=== PATIENT | male | born 1940 | race Caucasian/White ===

== ENCOUNTER → 2016-12-18 | Outpatient (CLI) | payer MEDICARE ==
--- NOTE | 2016-12-25 00:31 | MRI ---
EXAM DESCRIPTION: Cervical Spine CLINICAL HISTORY: 76 years Male, RADICULOPATHY COMPARISON: None. TECHNIQUE: Multiplanar, multisequence imaging of the cervical spine was performed without contrast. FINDINGS: There is mild straightening of the normal cervical lordosis. Disc desiccation at all levels with height loss at C6-7. The dens is unremarkable. Craniocervical and atlantoaxial junctions are unremarkable. C2-C3: No spinal canal or neuroforaminal narrowing. Mild right facet degeneration. C3-C4: Bilateral facet degeneration and uncovertebral joint hypertrophy. There is mild bilateral neural foraminal narrowing. The spinal canal is adequate. C4-C5: 2 mm broad-based posterior disc protrusion. The midline diameter of the spinal canal is widely patent measuring 1.2 cm. Moderate bilateral neural foraminal narrowing from facet and uncovertebral joint hypertrophy. C5-6: Severe bilateral neural foraminal narrowing from facet and uncovertebral joint hypertrophy. The midline diameter of the spinal canal is adequate at 12 mm. C6-C7: Broad-based posterior disc osteophyte complex and ligamentum flavum buckling. The midline diameter of the spinal canal is adequate at 1 cm. Severe bilateral neural foraminal narrowing from facet and uncovertebral joint hypertrophy. C7-T1: Facet degeneration and uncovertebral hypertrophy result in moderate bilateral neural foraminal narrowing. There is subtle grade 1 anterior listhesis of C7 on T1 with unroofing of the intervertebral disc. The AP diameter of the spinal canal is adequate. The facet hypertrophy on the left contacts the posterior margin of the cervical spine. No evidence of myelomalacia. IMPRESSION: Today's exam demonstrates multilevel degenerative change, but no spinal canal narrowing at any level. There is grade 1 anterior listhesis of C7 on T1 due to severe facet degeneration. Facet hypertrophy of the left facet result in contact of the posterior left margin of the spinal cord. No evidence of myelomalacia. Multilevel neuroforaminal narrowing as described above. This is most pronounced bilaterally at C6-C7 and C5-6 in which there is severe bilateral neuroforaminal narrowing. Electronically signed by: Iftikhar Gauthier MD 12/19/2016 10:53 AM ENVIRONMENTAL SERVICES SUPERVISOR
== END | disposition home or self-care (01) ==
LOC: MRI 06:42
PROVIDERS: ATTEND Family Medicine
DX: M54.12 Radiculopathy, cervical region (principal)

== ENCOUNTER 2016-12-31 12:58 | Emergency (ER) | payer MEDICARE ==
[2016-12-31 13:08] VITALS: TEMP 98.4
[2016-12-31] MEDS ORDERED: SODIUM CHLORIDE 0.9% 1000ML 500 ML IVS ONE (13:10)
[2016-12-31] MEDS ORDERED: PHYTONADIONE INJ 10 MG/ML AMP IM ONE (13:37)
--- NOTE | 2016-12-31 15:06 | CT ---
PROCEDURE: Abdomen/Pelvis w/Contrast HISTORY: gi bleed Indication: Same as above Comparison: None . Technique: CT of the abdomen and pelvis was done with intravenous contrast. Images were obtained from the lung base to the level of the pubic symphysis in axial plane, followed by orthogonal sagittal and coronal reconstruction. Oral contrast was not given for the study. The patient was injected with radiographic contrast intravenously, without any documented immediate adverse reactions. FINDINGS: Images through the lung bases do not show any focal infiltrates or pleural effusions. There is diffuse thickening of the wall of the descending colon, from the level of the splenic flexure to the level of the junction with the sigmoid colon suspicious for segmental colitis, which could be due to infectious/inflammatory or ischemic etiology. The liver, gallbladder, pancreas, spleen and the bilateral adrenal glands appear unremarkable. Note is made of multiple benign cortical cysts in the bilateral kidneys, the largest of these cysts seen in the upper pole of each kidney. The bilateral kidneys otherwise enhance with contrast in a normal fashion. The urinary bladder is unremarkable . Prostate is mildly enlarged The bilateral ureters and the bilateral periureteral soft tissues and fat planes are unremarkable. The small bowel appears unremarkable, without any evidence of small bowel obstruction or bowel wall thickening. There is no CT evidence of acute appendicitis, pericecal inflammatory change or ileocecal mesenteric adenitis. The ileocecal junction appears unremarkable. The splenic and portal veins are of normal caliber, without any filling defects. There is no pathological lymphadenopathy in the retroperitoneum or in the pelvic region. There is no evidence of free fluid or free air in the abdomen or the pelvic region. There is no clinically significant abdominal aortic aneurysm. Fat-containing bilateral inguinal hernia defects are seen. The visualized lumbar spine shows degenerative change, most pronounced at L5/S1 level . The paravertebral soft tissues are unremarkable. The remainder of the pelvic structures are unremarkable. IMPRESSION: There is diffuse thickening of the wall of the descending colon, from the level of the splenic flexure to the level of the junction with the sigmoid colon suspicious for segmental colitis, which could be due to infectious/inflammatory or ischemic etiology.. Location of Interpretation: [facility] Electronically signed by: Koby Hayes MD 12/31/2016 3:[address]
[2016-12-31] MEDS ORDERED: metroNIDAZOLE IV PREMIX 500MG 500 MG in PREMIX BAG 1 BAG IVPB ONE (15:15)
[2016-12-31] MEDS ORDERED: metroNIDAZOLE IV PREMIX 500MG 100 ML IVPB ONE (15:29)
--- NOTE | 2016-12-31 15:44 | ED.PDOC ---
History of Present Illness - General Chief Complaint: GI Problem Stated Complaint: severe abdominal pain Time Seen by Provider: 12/31/16 13:00 Source: patient, family Exam Limitations: no limitations - History of Present Illness Initial Comments: the patient is a 76-year-old male presented to emergency room secondary to lower GI bleeding. The patient has had approximately 5 bowel movements with blood the first starting in the early hours of the morning around 5 AM. The initial bowel movement was stool with blood mixed in. The last 2 bowel movements were just frankly what clots being passed. Estimated blood loss by description from the report approximately 150 cc. The patient is anticoagulated on Coumadin for atrial fibrillation. He does have some mild to moderate bowel cramping. He has had no hypotension or tachycardia since his arrival here. He said he did feel weak there for a little while while he was sitting on the toilet. He did not pass out. No palpitations. No shortness of breath. No chest pain. He has not any problems with hemorrhoids recently. He has not been on antibiotics recently. He has not had a lower endoscopy in the past and he has no family history of inflammatory bowel disease or early gastrointestinal cancers. No recent abdominal trauma. He had been having regular bowel movements up until this morning. No fevers or cramping prior to that. Severity: moderate Improving Factors: nothing Worsening Factors: nothing Associated Symptoms: diaphoresis, loss of appetite, nausea/vomiting, weakness Allergies/Adverse Reactions: Allergies Penicillin G Allergy (Intermediate, Verified 12/31/16 13:12) Rash Home Medications: Ambulatory Orders Amlodipine Besylate 10 mg PO HS 12/06/12 Digoxin 0.25 mg PO HS 12/06/12 Fish Oil [(None)] 2,400 mg PO HS 12/06/12 Niacinamide [Niacin] 5,000 mg PO HS 12/06/12 Warfarin Sodium [Coumadin] 10 mg PO SUTUTHSA 12/06/12 Warfarin Sodium [Coumadin] 5 mg PO MOWEFR 12/31/16 Review of Systems - Review of Systems Constitutional: States: malaise EENTM: States: no symptoms reported Respiratory: States: no symptoms reported Cardiology: States: no symptoms reported Gastrointestinal/Abdominal: States: see HPI Genitourinary: States: no symptoms reported Musculoskeletal: States: no symptoms reported Skin: States: no symptoms reported Neurological: States: no symptoms reported Endocrine: States: no symptoms reported Hematologic/Lymphatic: States: blood clots - past from the GI tract, easy bruising - no new and due to Coumadin All other Systems: No Change from Baseline Past Medical History (General) - Patient Medical History Hx Stroke: No Hx Cardiac Disorders: Yes - Atrial fib Hx Congestive Heart Failure: No Hx Diabetes: No Hx MRSA: No - Vaccination History Hx Influenza Vaccination: No Hx Pneumococcal Vaccination: No - Social History Hx Tobacco Use: No Family Medical History - Family History Father Living Status: Hx Cardiac Disease: Yes Physical Exam - Physical Exam General Appearance: Alert, No apparent distress Eye Exam: bilateral normal Ears, Nose, Throat: normal ENT inspection, normal pharynx Neck: full range of motion, supple, normal inspection Respiratory: chest non-tender, lungs clear, normal breath sounds, no respiratory distress, no accessory muscle use Cardiovascular/Chest: normal peripheral pulses, no edema, irregularly irregular - but regular rate Peripheral Pulses: radial,right: 2+, radial,left: 2+, dorsalis pedis,right: 2+, dorsalis pedis,left: 2+ Gastrointestinal/Abdominal: soft, other - no obvious rebound or peritoneal signs. He is diffusely uncomfortable to palpation around his abdomen. Bowel sounds are present. 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 CT scan indicates descending colon colitis of uncertain etiology. The patient is receiving 1 dose of IV Flagyl. Vital signs have remained stable. Repeat hemoglobin and hematocrit are pending at this time and will be forwarded. Initial hemoglobin and hematocrit were reassuring. The patient has received 1 dose of subcutaneous vitamin K. Transferring from gastroenterology evaluation or intervention or evaluation. the patient has not had further bowel movements since his arrival here. - Results/Orders Results/Orders: Laboratory Tests 12/31/16 12/31/16 13:15 14:05 WBC 18.3 H RBC 5.39 Hgb 16.3 Hct 48.4 MCV 89.8 MCH 30.2 MCHC 33.7 RDW 13.0 Plt Count 188 MPV 9.0 Absolute Neuts (auto) 16.20 H Absolute Lymphs (auto) 1.30 Absolute Monos (auto) 0.80 Absolute Eos (auto) 0.00 Absolute Basos (auto) 0.10 Neutrophils % 88.4 H Lymphocytes % 6.9 L Monocytes % 4.1 Eosinophils % 0.0 L Basophils % 0.6 PT 25.2 H* INR 2.250 PTT (SP) 38.1 H D-Dimer, Quantitative < 230 Sodium 142 Potassium 3.8 Chloride 102 Carbon Dioxide 28 Anion Gap 15.8 BUN 16 Creatinine 0.85 BUN/Creatinine Ratio 18.8 Random Glucose 155 H Serum Osmolality 287.4 Lactic Acid 1.5 Calcium 9.3 Total Bilirubin 1.5 H AST 37 ALT 30 Alkaline Phosphatase 74 Serum Total Protein 8.3 H Albumin 4.6 Globulin 3.7 H Albumin/Globulin Ratio 1.2 Urine Color Yellow Urine Appearance Clear Urine pH 7.5 Ur Specific [place] 1.020 Urine Protein 100 H Urine Glucose (UA) Negative Urine Ketones 40 H Urine Blood Negative Urine Nitrite Negative Urine Bilirubin Small H Urine Urobilinogen 0.2 Ur Leukocyte Esterase Negative Urine RBC 0 Urine WBC 0 Ur Epithelial Cells [address] scan of abdomen and pelvis shows a descending colon colitis infectious versus inflammatory versus ischemic Departure - Departure Clinical Impression: Lower gastrointestinal bleeding Anticoagulant adverse reaction Qualifiers: Encounter type: initial encounter Qualifier Code: (T45.515A) Adverse effect of anticoagulants, initial encounter Disposition: Transfer to Hospital Home Medications: Ambulatory Orders Amlodipine Besylate 10 mg PO HS 12/06/12 Digoxin 0.25 mg PO HS 12/06/12 Fish Oil [(None)] 2,400 mg PO HS 12/06/12 Niacinamide [Niacin] 5,000 mg PO HS 12/06/12 Warfarin Sodium [Coumadin] 10 mg PO SUTUTHSA 12/06/12 Warfarin Sodium [Coumadin] 5 mg PO MOWEFR 12/31/16 Transfer to Outside Facility - Transfer Information Accepting Provider:: nellie Accepting Facility: [facility] Reason for Transfer: required specialist not available
[2016-12-31 16:13] VITALS: BP 118/67
[2016-12-31 16:56] VITALS: O2SAT 97
== END 2016-12-31 16:55 | disposition short-term general hospital (02) ==
LOC: ER 12:58
DX: K92.2 Gastrointestinal hemorrhage, unspecified (principal); T45.515A Adverse effect of anticoagulants, initial encounter; I48.91 Unspecified atrial fibrillation; Z88.0 Allergy status to penicillin; Z79.899 Other long term (current) drug therapy; Z79.01 Long term (current) use of anticoagulants
CPT/HCPCS: 36415; 74177; 80053; 81001; 83605; 85014; 85018; 85025; 85379; 85610; 85730; 93005; J3430; J3490; J7030

== ENCOUNTER 2017-01-12 04:27 | Emergency (ER) | payer MEDICARE ==
[2017-01-12] MEDS ORDERED: SODIUM CHLORIDE 0.9% 1000ML 1,000 ML IVS PRN (04:37)
[2017-01-12] MEDS ORDERED: SODIUM CHLORIDE 0.9% (FLUSH) 10 ML SYG IV PRN ×2 (04:37→04:45)
[2017-01-12] MEDS ORDERED: ATROPINE SULFATE 0.5 MG/5 ML SYRINGE IV ONE ×2 (04:39→04:41)
[2017-01-12] MEDS ORDERED: FLUMAZENIL 0.1 MG/ML VIAL IV ONE (05:11)
--- NOTE | 2017-01-12 05:14 | CT ---
Clinical History : altered LOC, minimal response , MAIN Exam : CT Head without contrast 01/12/2017 4:37 AM CDT Comparisons : none. Technique : Volumetric CT acquisition was performed through the brain. Images in the axial, coronal, and sagittal planes were presented for interpretation. Radiation dose : [id number]-870.72 Findings: The soft tissue structures of the face, scalp, and orbits are normal. The globes remain intact. The visualized portions of the paranasal sinuses and mastoid air-cells are clear. The calvarium remains intact . There is no acute intracranial hemorrhage, midline shift, or mass effect. The ventricles are normal in size and the posterior fossa structures are normal in appearance. Limited evaluation of the vasculature demonstrates no gross abnormalities. There is no CT evidence of acute infarction. Impression: No acute intracranial process. Electronically signed by: Yogi Rosa MD 01/12/2017 5:13 AM CDT
--- NOTE | 2017-01-12 05:15 | RAD ---
Clinical History : bradycardia, altered mental status , MAIN Exam : Portable AP view of the chest 01/12/2017 4:45 AM CDT Comparisons : PA and lateral views of the chest December 06, 2016 Findings : There is mild diffuse peribronchial thickening throughout the lungs bilaterally. There is no focal consolidation or pleural effusion.. The heart is enlarged. The mediastinal contours are normal in appearance. The thoracic spine is age appropriate. The shoulders are unremarkable. Limited evaluation of the upper abdomen demonstrates no gross abnormalities. Impression: Cardiomegaly with mild peribronchial thickening and no focal consolidation, likely representing interstitial edema versus viral/atypical infectious process. Electronically signed by: Yogi Rosa MD 01/12/2017 5:14 AM CDT
[2017-01-12] MEDS ORDERED: NALOXONE HCL INJ 0.4 MG/ML VIAL IV ONE (05:24)
--- NOTE | 2017-01-12 05:26 | ED.PDOC ---
History of Present Illness - General Chief Complaint: Trauma Stated Complaint: fall in BR, found unresponsive, breathing Time Seen by Provider: 01/12/17 04:45 Source: RN notes reviewed, Vital Signs reviewed, family - , EMS Exam Limitations: clinical condition - History of Present Illness Initial Comments: Patient is a 76 y/o male who was brought in by EMS. PT, Patient's heard a commotion in the bathroom and went in to find her slumped over. She was unable to pick him up, so she called EMS. Patient was unresponsive, so he was given two doses of Narcan. An IV was placed and a liter of NS was started. Patient was bradycardic, hypertensive and diaphoretic. Last known normal was 2100 last night. does not know all of Patient's medications. He had a colon resection 1 1/ 2 weeks ago by laparoscopy. The only pain medication he has is Tylenol #3. He does not have any sleeping aids or anxiety medication. He is currently on Coumadin for Afib. Timing/Duration: 1-3 hours Severity: severe Improving Factors: nothing Worsening Factors: nothing Associated Symptoms: other - Patient not communicative. Allergies/Adverse Reactions: Allergies Penicillin G Allergy (Intermediate, Verified 01/12/17 04:36) Rash Home Medications: Ambulatory Orders Amlodipine Besylate 10 mg PO HS 12/06/12 Digoxin 0.25 mg PO HS 12/06/12 Fish Oil [(None)] 2,400 mg PO HS 12/06/12 Niacinamide [Niacin] 5,000 mg PO HS 12/06/12 Warfarin Sodium [Coumadin] 10 mg PO SUTUTHSA 12/06/12 Warfarin Sodium [Coumadin] 5 mg PO MOWEFR 12/31/16 Review of Systems - Review of Systems Unable to Obtain Due To: clinical condition - Patient is obtunded and will not answer questions. Past Medical History (General) - Patient Medical History Hx Stroke: No Hx Cardiac Disorders: Yes - Atrial fib Hx Congestive Heart Failure: No Hx Hypertension: Yes Hx Diabetes: No Hx MRSA: No Surgical History: colectomy, other - Vaccination History Hx Influenza Vaccination: No Hx Pneumococcal Vaccination: No - Social History Hx Tobacco Use: No Hx Alcohol Use: No Family Medical History - Family History Father Living Status: Hx Cardiac Disease: Yes Physical Exam - Physical Exam General Appearance: Other - Obtunded Eye Exam: bilateral normal - PERRL Respiratory: no respiratory distress, no accessory muscle use, rhonchi Cardiovascular/Chest: no edema, no gallop, no murmur, bradycardia Gastrointestinal/Abdominal: normal bowel sounds, soft Neurologic: other - GCS-11 Skin Exam: diaphoresis Progress - Progress Progress: 01/12/17 05:54 Patient did not respond to any interventions we attempted. I called [facility] transfer center at 0528. Call back was at 0540. I spoke with Dr. Bradley, neurology, who requested we do a CTA head and neck. - Results/Orders Results/Orders: 01/12/17 01/12/17 01/12/17 04:48 04:50 05:06 Temperature 95.9 F L Pulse Rate [ 59 L 69 left] Respiratory 12 16 Rate Blood Pressure 105/53 122/84 [left] O2 Sat by Pulse 98 98 100 Oximetry 01/12/17 04:37 Sodium Chloride 0.9% (Flush) [Saline Flush Syringe] 10 ml IV PRN PRN Sodium Chloride 0.9% 1000ML [Ns 1000 ml] 1,000 ml IVS .QD 01/12/17 04:38 IV Care:Saline Lock per Protoc QSHIFT Telemetry .ONCE 01/12/17 04:39 Pulse Oximetry Assessment DAILY 01/12/17 04:45 IV Care:Saline Lock per Protoc QSHIFT Telemetry .ONCE Sodium Chloride 0.9% (Flush) [Saline Flush Syringe] 10 ml IV PRN PRN EKG STAT Pulse Ox Stat 01/12/17 04:46 Pulse Oximetry Assessment DAILY 01/12/17 05:23 Shoulder,Right 1 View [RAD] Stat 01/12/17 05:36 URINE DRUG SCREEN, 7 ASSAY Stat URINALYSIS Stat 01/12/17 05:43 Catheter:[place]ila QSHIFT 01/12/17 05:47 CTA Head [CT] Stat CTA Neck [CT] Stat 01/12/17 09:00 Pulse Ox Daily 01/12/17 04:37 Sodium Chloride 0.9% (Flush) [Saline Flush Syringe] 10 ml IV PRN PRN Sodium Chloride 0.9% 1000ML [Ns 1000 ml] 1,000 ml IVS .QD 01/12/17 04:38 IV Care:Saline Lock per Protoc QSHIFT Telemetry .ONCE 01/12/17 04:39 Pulse Oximetry Assessment DAILY 01/12/17 04:45 IV Care:Saline Lock per Protoc QSHIFT Telemetry .ONCE Sodium Chloride 0.9% (Flush) [Saline Flush Syringe] 10 ml IV PRN PRN EKG STAT Pulse Ox Stat 01/12/17 04:46 Pulse Oximetry Assessment DAILY 01/12/17 05:43 Catheter:Avila QSHIFT 01/12/17 05:47 CTA Head [CT] Stat CTA Neck [CT] Stat 01/12/17 09:00 Pulse Ox Daily Laboratory Results WBC 12.6 K/mm3 (4.8-10.8) H 01/12/17 04:45 RBC 4.65 M/mm3 (4.70-6.10) L 01/12/17 04:45 Hgb 13.8 gm/dL (14.0-18.0) L 01/12/17 04:45 Hct 42.2 % (42.0-52.0) 01/12/17 04:45 MCV 90.7 fl (80.0-94.0) 01/12/17 04:45 MCH 29.6 pg (27.0-31.0) 01/12/17 04:45 MCHC 32.7 g/dL (33.0-37.0) L 01/12/17 04:45 RDW 12.9 % (11.5-14.5) 01/12/17 04:45 Plt Count 331 K/mm3 (130-400) 01/12/17 04:45 MPV 8.6 fl (7.40-10.4) 01/12/17 04:45 Absolute Neuts (auto) 7.60 K/uL (1.8-6.8) H 01/12/17 04:45 Absolute Lymphs (auto) 4.00 K/uL (1.0-3.4) H 01/12/17 04:45 Absolute Monos (auto) 0.70 K/uL (0.2-0.8) 01/12/17 04:45 Absolute Eos (auto) 0.30 K/uL (0.0-0.4) 01/12/17 04:45 Absolute Basos (auto) 0.10 K/uL (0.0-0.1) 01/12/17 04:45 Neutrophils % 60.1 % (42.0-78.0) 01/12/17 04:45 Lymphocytes % 31.8 % (20.0-50.0) 01/12/17 04:45 Monocytes % 5.2 % (2.0-9.0) 01/12/17 04:45 Eosinophils % 2.1 % (1.0-5.0) 01/12/17 04:45 Basophils % 0.8 % (0.0-2.0) 01/12/17 04:45 PT 14.9 SECONDS (9.4-12.5) H 01/12/17 04:45 INR 1.320 01/12/17 04:45 PTT (SP) 32.2 SECONDS (25.1-36.5) 01/12/17 04:45 D-Dimer, Quantitative < 200 ng/mL (0-230) 01/12/17 04:46 Sodium 139 mmol/L (135-145) 01/12/17 04:45 Potassium 3.9 mmol/L (3.6-5.0) 01/12/17 04:45 Chloride 104 mmol/L (101-111) 01/12/17 04:45 Carbon Dioxide 26 mmol/L (21-31) 01/12/17 04:45 Anion Gap 12.9 (12-18) 01/12/17 04:45 BUN 15 mg/dL (7-18) 01/12/17 04:45 Creatinine 0.79 mg/dL (0.6-1.3) 01/12/17 04:45 BUN/Creatinine Ratio 19.0 (10-20) 01/12/17 04:45 Random Glucose 121 mg/dL (70-105) H 01/12/17 04:45 Serum Osmolality 279.6 mOsm/L (275-295) 01/12/17 04:45 Calcium 9.0 mg/dL (8.4-10.2) 01/12/17 04:45 Magnesium 2.1 mg/dL (1.8-2.5) 01/12/17 04:45 Total Bilirubin 0.6 mg/dL (0.2-1.0) 01/12/17 04:45 Direct Bilirubin 0.1 mg/dL (0-0.2) 01/12/17 04:45 Indirect Bilirubin 0.5 mg/dL (0.2-0.8) 01/12/17 04:45 AST 60 IU/L (10-42) H 01/12/17 04:45 ALT 58 IU/L (10-60) 01/12/17 04:45 Alkaline Phosphatase 127 IU/L (42-121) H 01/12/17 04:45 Creatine Kinase 27 IU/L (38-174) L 01/12/17 04:45 CK-MB (CK-2) 1.2 ng/mL (0.0-4.4) 01/12/17 04:45 CK-MB (CK-2) % Not Reportable 01/12/17 04:45 Troponin I < 0.02 ng/mL (0.01-0.05) 01/12/17 04:45 B-Natriuretic Peptide 112.0 pg/ml (0-100) H 01/12/17 04:45 Serum Total Protein 6.7 gm/dL (6.4-8.2) 01/12/17 04:45 Albumin 3.4 g/dl (3.2-5.5) 01/12/17 04:45 Urine Color Yellow (Yellow) 01/12/17 05:56 Urine Appearance Clear (Clear) 01/12/17 05:56 Urine pH 8.0 (4.5-7.8) H 01/12/17 05:56 Ur Specific [place] 1.020 (1.005-1.030) 01/12/17 05:56 Urine Protein 100 mg/dL H 01/12/17 05:56 Urine Glucose (UA) Negative mg/dL (Negative) 01/12/17 05:56 Urine Ketones Negative mg/dL (NEGATIVE) 01/12/17 05:56 Urine Blood Negative (Negative) 01/12/17 05:56 Urine Nitrite Negative 01/12/17 05:56 Urine Bilirubin Negative (NEGATIVE) 01/12/17 05:56 Urine Urobilinogen 0.2 mg/dL (0.2-1.0) 01/12/17 05:56 Ur Leukocyte Esterase Negative (Negative) 01/12/17 05:56 Urine RBC 0-1 /hpf 01/12/17 05:56 Urine WBC 0-1 /hpf 01/12/17 05:56 Ur Epithelial Cells 0 /hpf 01/12/17 05:56 Urine Bacteria Rare 01/12/17 05:56 Digoxin 0.9 ng/mL (1.0-2.0) L 01/12/17 04:56 Urine Opiates Screen Negative ng/mL (2000) 01/12/17 05:36 Urine Barbiturates Negative ng/mL (200) 01/12/17 05:36 Ur Phencyclidine Scrn Negative ng/mL (25) 01/12/17 05:36 U Amphetamin/Meth Scrn Negative ng/mL (1000) 01/12/17 05:36 U Benzodiazepines Scrn Negative ng/mL (200) 01/12/17 05:36 U Cocaine Metab Screen Negative ng/mL (300) 01/12/17 05:36 U Cannabinoids Screen Negative ng/mL (50) 01/12/17 05:36 Ethyl Alcohol < 5.40 mg/dL (0-79) 01/12/17 05:00 - EKG/XRAY/CT EKG: Atrial - with slow ventricular response - Rate 56, no ST T wave changes, Changed from - 01/01/2016 - afib, normal rate Comments: NML axis - Afib with SVR XRAY: chest - Peribronchial thickening. CT: Head--no acute process CT Ordered: Yes CT Interpretation Call Back: No - Report sent - Additional EKG/XRAY/Consults XRAY #2: Right shoulder - No fracture or dislocation Departure - Departure Clinical Impression: Atrial fibrillation with slow ventricular response Altered mental status Qualifiers: Altered mental status type: coma Coma depth: [place] coma 9-12 Qualifier Code: (R40.242) Luci coma scale score 9-12 Disposition: Transfer to Hospital Condition: Serious Home Medications: Ambulatory Orders Amlodipine Besylate 10 mg PO HS 12/06/12 Digoxin 0.25 mg PO HS 12/06/12 Fish Oil [(None)] 2,400 mg PO HS 12/06/12 Niacinamide [Niacin] 5,000 mg PO HS 12/06/12 Warfarin Sodium [Coumadin] 10 mg PO SUTUTHSA 12/06/12 Warfarin Sodium [Coumadin] 5 mg PO MOWEFR 12/31/16 Critical Care Note - Critical Care Note Total Time (mins): 20 Comments: Patient was given Atropine 0.5 mg IV due to symptomatic bradycardia. Pulse and blood pressure improved. He continued to receive IV fluids. Patient was also given Romazicon 0.2 mg and Narcan 0.4 mg without change in mental status. Total time spent in critical care was 20 minutes which does not include billable procedures. Transfer to Outside Facility - Transfer Information Accepting Provider:: Dr. Mark Viramontes Accepting Facility: [place] Reason for Transfer: required specialist not available
--- NOTE | 2017-01-12 06:05 | RAD ---
EXAM DESCRIPTION: Shoulder,Right 1 View CLINICAL HISTORY: 76 years, Male, shoulder weakness COMPARISON: PA and lateral views of the chest December 06, 2012 FINDINGS: The patient is osteopenic. There is otherwise no acute fracture or dislocation. The glenohumeral articulation is intact. The acromioclavicular joint is normal in appearance. Limited evaluation of the scapula and clavicle demonstrate no gross abnormalities. The chest is grossly normal in appearance. IMPRESSION: No acute fracture or dislocation of the right shoulder. Electronically signed by: Yogi Rosa MD 01/12/2017 6:04 AM CDT
--- NOTE | 2017-01-12 07:01 | CT ---
EXAM DESCRIPTION: CTA Head (accession [id number]), CTA Neck (accession [id number]), 01/12/2017 6:52 AM CDT CLINICAL HISTORY: 76 years, Male, Altered mental status COMPARISON: MRI cervical spine with and without contrast July 24, 2008 TECHNIQUE: Following the time administration of intravenous contrast, volumetric CT acquisition was performed from the aortic arch through the vertex of the brain. Images in the axial plane were presented for interpretation. No maximum intensity projection images or volume rendered images were provided for interpretation. RADIATION DOSE/CONTRAST : [id number] FINDINGS: Arch: The visualized portions of the aortic arch are normal. There is no stenosis of the proximal portion of the left subclavian artery proximal to the origin of the left vertebral artery. Right Neck: The right common carotid artery is normal in course and caliber from its origin off of the brachiocephalic trunk through the bifurcation.] There is calcified atherosclerotic plaque at the right carotid bulb with a 30% narrowing on axial image 65. The right internal and external carotid arteries are normal in course and caliber throughout the neck. There is no significant atherosclerotic or significant narrowing/dissection. Right Brain The right internal carotid artery is normal in course and caliber from its cervical through the supraclinoid segments. The right middle cerebral artery is normal in course, caliber, and branching pattern. The right anterior cerebral artery is normal in course, caliber and branching pattern. Left Neck: The left common carotid artery is normal in course and caliber from its origin off of the aorta to its bifurcation. There is complete occlusion of the left internal carotid artery from the level of the carotid bulb on axial image 64 through the level of the supraclinoid ICA on axial image 121. There is collateral filling of the anterior and middle cerebral arteries on the left as well as backfilling of the distal portion of the supraclinoid ICA. Left Brain: The left internal carotid artery is normal in course and caliber from its cervical through the supraclinoid segments. The left middle cerebral artery is normal in course, caliber, and branching pattern. The left anterior cerebral artery is normal in course, caliber and branching pattern. The anterior communicating artery is nonvisualized. There is no evidence of aneurysm or dissection in the anterior circulation or at the MCA bifurcation. Posterior Circulation: The left vertebral artery is asymmetrically smaller than the right vertebral arteries are otherwise normal in course and caliber. The basilar artery terminates in the left posterior cerebral artery. 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 The basilar artery has normal branching pattern. There is no evidence of aneurysm or dissection in the posterior circulation. The posterior cerebral arteries are symmetric and normal in appearance bilaterally. IMPRESSION: Neck CTA 1. 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 2. Calcified atherosclerotic plaque at the right carotid bulb without hemodynamically significant narrowing or evidence of dissection. Brain CTA 1. Collateral filling of the left middle and anterior cerebral arteries. 2. No other areas of aneurysm, dissection, or large vessel occlusion. Note: Results discussed with Dr. Alaniz of the Emergency Department at 06:58 on January 12, 2017. Electronically signed by: Yogi Rosa MD 01/12/2017 7:00 AM CDT
[2017-01-12 07:04] VITALS: BP 116/74; TEMP 97.2; O2SAT 98
== END 2017-01-12 07:03 | disposition short-term general hospital (02) ==
LOC: ER 04:27
DX: I48.91 Unspecified atrial fibrillation (principal); Z79.01 Long term (current) use of anticoagulants; Z79.899 Other long term (current) drug therapy; Z88.0 Allergy status to penicillin; I10 Essential (primary) hypertension; R40.2422 Glasgow coma scale score 9-12, at arrival to emergency department
CPT/HCPCS: 70450; 70496; 70498; 71010; 73020; 80048; 80076; 80162; 80307; 80320; 81001; 82550; 82553; 83880; 84484; 85025; 85379; 85610; 85730; 93005; 94760; J2310; J7030

== ENCOUNTER 2017-03-12 16:09 | Emergency (ER) | payer MEDICARE ==
[2017-03-12] MEDS ORDERED: SODIUM CHLORIDE 0.9% (FLUSH) 10 ML SYG IV PRN (16:39)
--- NOTE | 2017-03-12 16:59 | ED.PDOC ---
History of Present Illness - General Chief Complaint: Cardiovascular Problem Stated Complaint: SYNCOPE/HYPOTENSION Time Seen by Provider: 03/12/17 16:39 Source: family Exam Limitations: clinical condition, physical impairment - History of Present Illness Initial Comments: PT IS A RESIDENT OF [facility]. FAMILY MEMBERS STATE THAT PT HAD A SYNCOPAL EPISODE WHILE SITTING IN A CHAIR TODAY AND WAS FOUND TO BE HYPOTENSIVE BY LONG TERM STAFF. PT SUFFERED A MASSIVE STROKE IN DECEMBER WHICH AFFECTED HIS ABILITY TO MAINTAIN A NORMAL BLOOD PRESSURE. FAMILY STATES THAT PATIENT HAS EPISODES SIMILAR TO THIS EVERY FEW DAYS. PT IS ALSO APHASIC WITH RIGHT SIDED HEMIPARESIS SECONDARY TO THE STROKE. FAMILY DENIES ANY RECENT ILLNESS PRIOR TO TODAYS EPISODE. Severity: moderate Associated Symptoms: syncope Allergies/Adverse Reactions: Allergies Penicillin G Allergy (Intermediate, Verified 01/12/17 04:36) Rash Home Medications: Ambulatory Orders Amlodipine Besylate 10 mg PO HS 12/06/12 Digoxin 0.25 mg PO HS 12/06/12 Fish Oil [(None)] 2,400 mg PO HS 12/06/12 Niacinamide [Niacin] 5,000 mg PO HS 12/06/12 Warfarin Sodium [Coumadin] 10 mg PO SUTUTHSA 12/06/12 Warfarin Sodium [Coumadin] 5 mg PO MOWEFR 12/31/16 Review of Systems - Review of Systems Constitutional: Denies: chills, fever EENTM: Denies: tearing, nose congestion Respiratory: Denies: cough, short of breath Cardiology: States: see HPI, syncope. Denies: edema Gastrointestinal/Abdominal: Denies: diarrhea, nausea, vomiting Genitourinary: Denies: discharge, hematuria Musculoskeletal: Denies: gout, muscle stiffness Skin: Denies: change in color, lesions Neurological: States: pre-existing deficit. Denies: seizure, tremors Endocrine: Denies: excessive sweating, unexplained weight gain Hematologic/Lymphatic: Denies: easy bleeding, swollen glands Past Medical History (General) - Patient Medical History Hx Seizures: No Hx Stroke: Yes - December - right sided wkns Hx Cardiac Disorders: Yes - Atrial fib Hx Congestive Heart Failure: No Hx Pacemaker: No Hx Hypertension: Yes Hx Diabetes: No Hx MRSA: No Surgical History: colectomy - DUE TO ISCHEMIC BOWEL - Vaccination History Hx Influenza Vaccination: No Hx Pneumococcal Vaccination: No - Social History Hx Tobacco Use: No Hx Alcohol Use: No - Activities of Daily Living Penitentiary[facility]Assisted [facility] (if applicable):: [facility] Family Medical History - Family History Father Living Status: Hx Cardiac Disease: Yes Physical Exam - Physical Exam General Appearance: Alert, Comfortable, No apparent distress, Well Developed, Well Groomed, Well Hydrated, Well Nourished Eye Exam: bilateral normal Ears, Nose, Throat: hearing grossly normal, normal ENT inspection Neck: normal inspection Respiratory: lungs clear, normal breath sounds, no respiratory distress Cardiovascular/Chest: no edema, no murmur, irregularly irregular Gastrointestinal/Abdominal: non tender, soft, other - G TUBE IN PLACE IN THE EPIGASTRIC REGION Extremity: non-tender, normal inspection, no pedal edema Neurologic: alert - APHASIC, PT NODS AND SHAKES HEAD IN RESPONSE TO QUESTIONS, motor weakness - RIGHT SIDED HEMIPARESIS, sensory deficit Skin Exam: normal color, warm/dry Progress - Progress Progress: 03/12/17 18:28 PT CONTINUES TO REST COMFORTABLY, BLOOD PRESSURE HAS REMAINED STABLE WITH A SYSTOLIC IN THE 120S. LABS AND DIAGNOSTIC STUDIES DISCUSSED WITH FAMILY. WILL PLAN TO D/C BACK TO [facility]. - Results/Orders Results/Orders: 03/12/17 16:39 IV Care:Saline Lock per Protoc QSHIFT Telemetry .ONCE Sodium Chloride 0.9% (Flush) [Saline Flush Syringe] 10 ml IV PRN PRN EKG Stat Pulse Ox Stat 03/12/17 16:40 Pulse Oximetry Assessment DAILY 03/12/17 16:41 UA [URINALYSIS] Stat 03/12/17 17:37 Sodium Chloride 0.9% 1000ML [Ns 1000 ml] 1,000 ml IVS ONCE Laboratory Results - last 24 hr 03/12/17 16:55 WBC 9.0 RBC 5.33 Hgb 16.2 Hct 47.7 MCV 89.5 MCH 30.3 MCHC 33.9 RDW 14.1 Plt Count 193 MPV 9.7 Absolute Neuts (auto) 6.80 Absolute Lymphs (auto) 1.60 Absolute Monos (auto) 0.40 Absolute Eos (auto) 0.20 Absolute Basos (auto) 0.00 Neutrophils % 75.5 Lymphocytes % 17.4 L Monocytes % 4.6 Eosinophils % 2.0 Basophils % 0.5 PT 17.4 H INR 1.550 PTT (SP) 36.6 H Sodium 138 Potassium 4.4 Chloride 98 L Carbon Dioxide 31 Anion Gap 13.4 BUN 21 H Creatinine 0.72 BUN/Creatinine Ratio 29.2 H Random Glucose 111 H Serum Osmolality 279.3 Calcium 9.4 Magnesium 2.2 Creatine Kinase 29 L CK-MB (CK-2) 1.4 CK-MB (CK-2) % Not Reportable Troponin I 0.05 B-Natriuretic Peptide 39.6 - EKG/XRAY/CT EKG: Atrial, Fibrillation - @79BPM, NL INTERVALS, NL AXIS, GOOD R WAVE PROGRESSION, no ST T wave changes, Unchanged from - 01/12/17 Xray Comments: CXR: NO ACUTE FINDINGS PER RAD Departure - Departure Clinical Impression: Hypotension, chronic, History of CVA (cerebrovascular accident), History of atrial fibrillation Syncope Qualifiers: Syncope type: unspecified Qualified Code(s): R55 - Syncope and collapse Time of Disposition: 18:31 Disposition: Discharge to SNF Condition: Fair Departure Forms: ED Discharge - Pt. Copy, Patient Portal Self Enrollment Referrals: Papo Peterson MD [Primary Care Provider] - 1-2 Weeks Home Medications: Ambulatory Orders Amlodipine Besylate 10 mg PO HS 12/06/12 Digoxin 0.25 mg PO HS 12/06/12 Fish Oil [(None)] 2,400 mg PO HS 12/06/12 Niacinamide [Niacin] 5,000 mg PO HS 12/06/12 Warfarin Sodium [Coumadin] 10 mg PO SUTUTHSA 12/06/12 Warfarin Sodium [Coumadin] 5 mg PO MOWEFR 12/31/16
--- NOTE | 2017-03-12 17:36 | RAD ---
EXAM DESCRIPTION: Chest,1 View CLINICAL HISTORY: 76 years Male syncope/hypotension COMPARISON: 01/12/2017. FINDINGS: Poor inspiratory effort. Stable cardiac silhouette. Atherosclerotic calcifications and tortuosity in the thoracic aorta. Mild scarring or atelectasis in the mid and lower right lung and at the left lung base. No consolidating infiltrates or pleural effusions. No pneumothorax. IMPRESSION: Poor inspiratory effort with mild atelectatic changes. Electronically signed by: Dixon Benoit MD 03/12/2017 5:36 PM CDT
[2017-03-12] MEDS ORDERED: SODIUM CHLORIDE 0.9% 1000ML 1,000 ML IVS ONE (17:37)
[2017-03-12 19:42] VITALS: BP 135/85; TEMP 98; O2SAT 96
== END 2017-03-12 19:41 ==
LOC: ER 16:09
DX: I95.9 Hypotension, unspecified (principal); R55 Syncope and collapse; I69.920 Aphasia following unspecified cerebrovascular disease; I69.951 Hemiplegia and hemiparesis following unspecified cerebrovascular disease affecting right dominant side; I48.91 Unspecified atrial fibrillation; I10 Essential (primary) hypertension; Z88.0 Allergy status to penicillin; Z79.899 Other long term (current) drug therapy; Z79.01 Long term (current) use of anticoagulants
CPT/HCPCS: 36415; 71010; 80048; 82550; 82553; 83880; 84484; 85025; 85610; 85730; 93005; J7030

== ENCOUNTER 2017-03-30 13:00 | Inpatient (IN) | payer MEDICARE ==
--- NOTE | 2017-03-30 13:55 | ED.PDOC ---
History of Present Illness - General Chief Complaint: Syncope/Near Syncope Stated Complaint: syncopal episode Time Seen by Provider: 03/30/17 13:16 Source: RN notes reviewed, Vital Signs reviewed, family, correction records - History of Present Illness Initial Comments: Patient had an episode of hypotension and bradycardia with syncope prior to arrival by EMS. Granddaughter reports this has happened frequently in the past 2 months since he had a significant L sided stroke. At the time of his stroke these episodes were thought to be medication related thou there was discussion of a pacemaker at that time. These episodes seem to occur when he is in an upright position. Patient is noncommunicative but per granddaughter is not aware when these episodes are happening. Timing/Prior Episodes: single episode today, recent history Precipitating Factors: other - Sitting or standing Context: sitting Loss of Consciousness: brief (seconds) Current Symptoms: back to normal Allergies/Adverse Reactions: Allergies Penicillin G Allergy (Intermediate, Verified 01/12/17 04:36) Rash Home Medications: Ambulatory Orders Amlodipine Besylate 10 mg PO HS 12/06/12 Digoxin 0.25 mg PO HS 12/06/12 Fish Oil [(None)] 2,400 mg PO HS 12/06/12 Niacinamide [Niacin] 5,000 mg PO HS 12/06/12 Warfarin Sodium [Coumadin] 10 mg PO SUTUTHSA 12/06/12 Warfarin Sodium [Coumadin] 5 mg PO MOWEFR 12/31/16 Review of Systems - Review of Systems Unable to Obtain Due To: condition Past Medical History (General) - Patient Medical History Hx Seizures: No Hx Stroke: Yes - December - right sided wkns Hx Cardiac Disorders: Yes - Atrial fib Hx Congestive Heart Failure: No Hx Pacemaker: No Hx Hypertension: Yes Hx Diabetes: No Hx MRSA: No - Vaccination History Hx Influenza Vaccination: No Hx Pneumococcal Vaccination: No - Social History Hx Tobacco Use: No Hx Alcohol Use: No Physical Exam - Physical Exam General Appearance: Alert, Comfortable, No apparent distress, Well Developed, Well Groomed, Well Hydrated, Well Nourished Cardiovascular/Respiratory: regular rate, rhythm, no M/R/G, no JVD, normal breath sounds, no respiratory distress Gastrointestinal/Abdominal: normal bowel sounds, non tender, soft, no organomegaly, no pulsatile mass 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 Discussed with Dr. Rocha who will come see patient shortly. 03/30/17 14:53 Patient discussed again with Dr. Rocha. He would like for him to be admitted for 48-72 hours of continuous cardiac monitoring to catch these episodes to decide if he needs a pacemaker. Discussed with Hospitalist. Awaiting call back to see if admission is accepted. 03/30/17 15:[address] Ward, will admit for Syncope and cardiac monitoring. - EKG/XRAY/CT EKG: Atrial, Fibrillation, no ST T wave changes Comments: Rate 75 Departure - Departure Clinical Impression: Syncope and collapse, Blood pressure abnormally low, History of CVA ( cerebrovascular accident) Time of Disposition: 15:08 Disposition: Admit Patient Condition: Fair Departure Forms: ED Discharge - Pt. Copy, Patient Portal Self Enrollment Referrals: Papo Peterson MD [Primary Care Provider] - 1-2 Weeks Home Medications: Ambulatory Orders Amlodipine Besylate 10 mg PO HS 12/06/12 Digoxin 0.25 mg PO HS 12/06/12 Fish Oil [(None)] 2,400 mg PO HS 12/06/12 Niacinamide [Niacin] 5,000 mg PO HS 12/06/12 Warfarin Sodium [Coumadin] 10 mg PO SUTUTHSA 12/06/12 Warfarin Sodium [Coumadin] 5 mg PO MOWEFR 12/31/16 Decision To Admit - Decistion To Admit Decision to Admit Reason: Admit from ER Decision to Admit Date: 03/30/17 Decision to Admit Time: 15:07
--- NOTE | 2017-03-30 15:55 | HP ---
SUPERVISING PHYSICIAN: JOSE MIGUEL WARD MD CHIEF COMPLAINT: Syncopal episode. HISTORY OF PRESENT ILLNESS: This is a 76 year-old male patient who until December of this year had been in fairly good health. In the past he has had a history of atrial fibrillation, hypertension and hyperlipidemia and was on Coumadin. In December of this year he had a rectal bleed and was transferred to [place]. They took him off of his Warfarin for several days to have a colon resection and after surgery his Coumadin was restarted. His INR remained about 1.5 and he was home from January 05 to January 12. He fell in the bathroom at home, he was Care Flighted to [facility] in [place]. He had a stroke, he had several complications of the stroke while he was in the hospital at [facility] and ended up having some cardiac problems with low heart rate. At that time they considered placing a pacemaker but several of the physicians there felt that some of his symptoms were related to residual medications and effects of his stroke. He was then transferred to [facility] on . Since that time, he has had some syncopal episodes where the family says that he "zones out." These symptoms are usually when the patient goes to a sitting position or when he is being worked with with physical therapy. During these times, he has either syncopal episodes or he does not interact with visitors. He stares for long periods of time. These incidences have been increasing in frequency. He was scheduled to see Dr. Rocha today for a possible pacemaker insertion and before he could go to his appointment with he had a syncopal episode at [facility]. He was brought to the Emergency Room. Per the granddaughter, in the past all of his episodes have happened only when he goes to a sitting position but in the last 2 to 3 days they have occurred while he was lying in bed. Initially, the patient was going to be admitted for observation to observe his cardiac rhythm, his blood pressure as well as other symptoms but while in the Emergency Room he had a syncopal episode where his systolic blood pressure went to the 40s and within a few minutes his blood pressure went up to the 70s and within a few minutes after the initial onset, his systolic blood pressure was in the 100s. His heart rate ranged from 74 [id number] to 104 [id number]. During this time, the patient was unable to focus on anyone. He is at baseline aphasic and he does have residual right-sided hemiparesis. Lab work was done in the Emergency Room and his CBC was within normal limits. His chemistry showed a chloride of 100, BUN 22, glucose 112, AST was elevated at 389 with an ALT at 659 and alkaline phosphatase at 216. I was called for admission to the hospital. PAST MEDICAL HISTORY: 1. Atrial fibrillation. 2. Hypertension. 3. Hyperlipidemia. PAST SURGICAL HISTORY: 1. Hernia repair. 2. Colon resection. 3. Ankle surgery. OUTPATIENT MEDICATIONS: Per the EMR and awaiting verification. ALLERGIES: PENICILLIN SOCIAL HISTORY: He lives at [facility]. He quit smoking more than 25 years ago. He was a social drinker. There was no illicit drug use. REVIEW OF SYSTEMS: Unable to obtain due to patient's condition. PHYSICAL EXAMINATION: VITAL SIGNS: Heart rate 95, blood pressure 121/77, respiratory rate 12, 02 saturation 100% on room air. GENERAL: This is a 76 year-old male patient who is lying in his hospital bed. He is in no acute distress. HEENT: Atraumatic and normocephalic. Oropharynx is clear. CHEST: Clear to auscultation bilaterally. Chest has equal rise and fall of the chest with inspiration and expiration. CARDIOVASCULAR: Regular to tachycardiac rate, irregular rhythm. ABDOMEN: Soft, nontender, nondisplaced. Bowel sounds are positive. He has a G -tube in place. EXTREMITIES: He has right-sided hemiparesis. He moves his left side spontaneously. Bilateral pedal pulses are palpable at +2. SKIN: Warm and dry. There are no lesions or rashes. NEUROLOGIC: He is alert, he is aphasic. Labs and films are as per the history of present illness. ASSESSMENT: 1. Hypotension. 2. Syncopal episodes. 3. Elevated LSTs. 4. Recent CVA with residual aphasia and right-sided hemiparesis. 5. Atrial fibrillation on Coumadin therapy. 6. Recent rectal bleed with a colon resection. PLAN: We will admit the patient to the hospital. We will monitor his cardiac rhythm closely. I have consulted physical therapy. When physical therapy is being utilized, there will need to be someone that needs to be watching the compliance monitor as we need to record his heart rate. Dr. Rocha was called on this patient and he would like us to monitor his heart rate to warrant pacemaker placement. I have also ordered tilt blood pressures 3 times daily after meals. When those are obtained, the nurses have been instructed that two people needs to be assisting at the bedside as well as someone watching the monitor since most of his episodes occur when his position changes. A CT of the head has not been done recently and he will need one done but I would like to establish what his blood pressure and heart rate is during his position changes before we scan his head, but he will need a CT of his head as soon as possible. I have restarted his home medications. He also has tube feedings and I am not sure what those are so we will need to contact [facility] to obtain the type of tube feeding used in the actual schedule. I will repeat his labs in the morning as well as his PT/INR as he is on a rather large dose of Coumadin, will check that tomorrow. We will closely monitor all his vital signs and followup as needed. A Avila catheter will be placed as well as adding a urinalysis and a culture to make sure there is no infectious process at this time as patient has not been able to void since he was in the Emergency Room. Dr. Ward is the collaborating physician available for consultation. #[id number] #[id number]
[2017-03-30] MEDS ORDERED: SODIUM CHLORIDE 0.9% 1000ML 1,000 ML IVS ONE (15:56)
[2017-03-30] MEDS ORDERED: SODIUM CHLORIDE 0.9% (FLUSH) 10 ML SYG IV PRN (20:21)
[2017-03-30] MEDS ORDERED: IV SET AND CAP CHANGE INJ INJ SCH (20:30)
[2017-03-31] MEDS: DEX 5% W/NACL 0.9% 1000ML 1,000 ML IVS PRN ×3 (06:44→21:58)
[2017-03-31] MEDS ORDERED: WARFARIN SODIUM 5 MG TAB ONE (07:45)
[2017-03-31] MEDS: NON-FORMULARY MEDICATION 1 EA MIS (Linaclotide [Linzess] 145 MCG) GT SCH (09:15)
--- NOTE | 2017-03-31 10:46 | CT ---
EXAM DESCRIPTION: Head CLINICAL HISTORY: 76 years, Male, syncopal events COMPARISON: CTA head and neck performed on January 12, 2017 TECHNIQUE: Head CT was performed without IV contrast. This exam was performed according to our departmental dose-optimization program, which includes automated exposure control, adjustment of the mA and/or kV according to patient size and/or use of iterative reconstruction technique. FINDINGS: No acute intracranial hemorrhage. There is a large irregular area of decreased attenuation in the distribution of the left MCA which is new from January 12, 2017. This includes rounded areas of encephalomalacia and likely represents remote/subacute infarct. The lesion extends into the left globus pallidus/putamen. There is slight ex vacuo prominence of the left lateral ventricle. No additional infarct. No intracranial mass. No posterior fossa lesion. The basilar cisterns are well maintained. Minimal mucoperiosteal thickening is noted in the right maxillary sinus. No calvarial fracture. IMPRESSION: Large chronic/subacute left MCA territory infarct, new from January 12, 2017. Electronically signed by: Jonathan Hernandez MD 03/31/2017 10:46 AM CDT Workstation: [id number]
[2017-03-31] MEDS ORDERED: WARFARIN SODIUM 5 MG TAB PO SCH (12:00)
--- NOTE | 2017-03-31 12:13 | RAD ---
EXAM DESCRIPTION: KUB CLINICAL HISTORY: 76 years Male, g tube bulb location COMPARISON: None. FINDINGS: 2 views of the abdomen show oral contrast in the colon. The upper abdomen is excluded. No dilated small bowel loops. A gastric tube is not definitively identified. No suspicious intra-abdominal calcification or mass. IMPRESSION: Oral contrast in the colon, otherwise unremarkable exam. No gastric tube is visualized. If relevant, additional radiographic views of the upper abdomen may be helpful. Alternatively, Gastrografin contrast could be administered by way of the patient's gastric tube with follow-up radiograph for more definitive localization of the gastric tube. Electronically signed by: Jonathan Hernandez MD 03/31/2017 12:13 PM CDT Workstation: [id number]
--- NOTE | 2017-03-31 15:34 | RAD ---
PROCEDURE: KUB Clinical History: g tube placement Indication: Same as above Comparison: None Technique: 2.0 views of of the abdomen and pelvis. Findings: There is no gross evidence of free air in the abdomen or the pelvis on this single supine view of the abdomen and pelvis. There is presence of a tube in the right half of the abdomen terminating in the expected location of the distal gastric body Radiographic contrast is seen in the large bowel loops. There is significant constipation. Impression: There is presence of a tube in the right half of the abdomen terminating in the expected location of the distal gastric body Radiographic contrast is seen in the large bowel loops. There is significant constipation. Location of Interpretation: [id number] Electronically signed by: Koby Hayes MD 03/31/2017 3:34 PM CDT Workstation: [id number]
[2017-03-31] MEDS ORDERED: MAGNESIUM HYDROXIDE 30 ML UD GT PRN (16:33)
[2017-03-31] MEDS ORDERED: BISACODYL SUPPOSITORY 10 MG PR PRN ×2 (16:33→19:19)
[2017-03-31] MEDS ORDERED: NON-FORMULARY MEDICATION 1 EA MIS GT SCH (17:00)
[2017-03-31] MEDS: ASPIRIN (CHEWABLE) 81 MG TAB GT SCH (17:17)
[2017-03-31] MEDS ORDERED: MAGNESIUM HYDROXIDE 30 ML UD PO ONE (17:36)
[2017-04-01] MEDS: DEX 5% W/NACL 0.9% 1000ML 1,000 ML IVS PRN ×2 (06:05→15:20)
--- NOTE | 2017-04-01 08:21 | PN ---
SUPERVISING PHYSICIAN: Izaiah Ward MD DATE: 03/31/17 SUBJECTIVE: The patient is resting in bed. He appears alert. He is nonverbal. He did pull his G-tube out today. OBJECTIVE: He remains afebrile. I&O's show a negative balance of 1300 with the patient currently being on tube feedings which have been held secondary to patient removing his G-tube. He is getting IV fluids with D5 normal saline. Weight 92.9 kilograms. CHEST: Clear to auscultation bilaterally without any rhonchi, rales, or wheezes. HEART: Slightly irregular rate and rhythm. ABDOMEN: Soft, non-tender. G-tube in place. Since removed stoma looks healthy with no signs of infection pending reinsertion of the G-tube. Bowel sounds are positive. EXTREMITIES: He does have left-sided hemiparesis but moves his left side spontaneously and will shake his head for questions. Pulses are 3+. NEUROLOGICAL: He appears alert but unable to fully his orientation as the patient is completely aphasic. LABORATORY: PT and INR with PT showing elevation of 31.9 with INR 2.85 with patient on Coumadin. RADIOGRAPHIC STUDIES: KUB for loss of bulge on G-tube per radiology interpretation showed oral contrast within the colon, otherwise unremarkable examination. No gastric tube was visualized. CT of the head per radiology interpretation shows a large chronic subacute left MCA territory infarction new from December 2916. MICROBIOLOGY: A catheterized culture of the urine shows no growth at 24 hours. ASSESSMENT: 1. Hypotension possibly secondary to ongoing dehydration. 2. Syncopal episodes, again with unknown etiology. 3. Elevated liver function, unknown etiology', suspect possibly dehydration. 4. 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 5. Atrial fibrillation on Coumadin therapy. 6. Recent rectal bleed with a colon resection. 7. Constipation secondary to dehydration and previous oral contrast administration for a swallow study in the last 3 days. 8. Subacute large chronic left MCA territory infarction with his new findings compared from January 12, 2017. PLAN: Currently, we will continue with close monitoring and telemetry. Will continue to work with the patient with physical therapy. His G-tube was replaced with assistance from Dr. Ortiz initially with a 23 inch that failed to advance, this was switched to an 18-Cymraes with placement of bulb with 17 cc of saline. The patient was able to tolerate the procedure. X-rays were pending at time of dictation. Once placement is verified, we will work on resuming tube feedings. In regards to dehydration will continue with IV fluids and monitor closely on the output. Will plan to hold his Coumadin as his INR was elevated. Will anticipate an additional 2 to 3 days of admission to further assess tube feeding toleration as well as get a nutritional consultation as the G-tube had been pulled out and he is on continuous feedings with formula at care facility. Until then, we will continue to monitor the patient closely and treat appropriately. #[id number] [facility]
[2017-04-01] MEDS ORDERED: ACETAMINOPHEN W/COD #3 TAB (ER Disp) PO PRN (08:48)
[2017-04-01] MEDS: ASPIRIN (CHEWABLE) 81 MG TAB GT SCH (09:56)
[2017-04-01] MEDS: NON-FORMULARY MEDICATION 1 EA MIS (Linaclotide [Linzess] 145 MCG) GT SCH (10:08)
--- NOTE | 2017-04-01 14:10 | RAD ---
EXAM DESCRIPTION: KUB CLINICAL HISTORY: GTUBE PLACEMENT COMPARISON: None. FINDINGS: Single supine view of the abdomen was submitted. There is a G-tube projecting at the left mid abdomen. Contrast material is noted within the adjacent small bowel without extravasation. IMPRESSION: No acute abnormalities. Electronically signed by: Levi Long MD 04/01/2017 2:10 PM CDT
[2017-04-01] MEDS ORDERED: ACETAMINOPHEN W/COD #3 TAB 1 EA TAB PO PRN (15:00)
[2017-04-01] MEDS ORDERED: NON-FORMULARY MEDICATION 1 EA MIS GT SCH (18:00)
[2017-04-01] MEDS ORDERED: HALOPERIDOL LACTATE INJ 5 MG/ML VIAL IM ONE (18:29)
--- NOTE | 2017-04-01 21:33 | PCM.CORE ---
Physician DVT/VTE - Prophylaxis Currently: Patient already on anticoagulation therapy - Nurse DVT Assessment & Total Each Risk Factor Represents 3 Points: Age over 75 years Each Risk Factor Represents 2 Points: Confined to bed >72 hours Each Risk Factor Represents 1 Point: Medical PT at Bed Rest Each Risk Factor is 1 Point: Obesity (BMI >25) DVT Assessment Score: 7 - 5 or more Very High Risk Treatments: Early Ambulation *, Sequential Compression Device Pharmacological: Warfarin daily - warfrin
--- NOTE | 2017-04-02 08:27 | PN ---
SUPERVISING PHYSICIAN: Izaiah Ward MD DATE: 04/01/17 SUBJECTIVE: The patient is looking better. He did have several bowel movements after initiation f milk of magnesia. Final placement verification of his G-tube was confirmed with contrast. We plan on starting his feeding as he is able to tolerate. He has remained afebrile and hemodynamically stable with no episodes of bradycardia. OBJECTIVE: VITAL SIGNS: T-max 98.3, pulse 95, blood pressure 111/71, respirations 18, saturation 96% on room air. I&O's show a negative balance of 2003 with 3104 in and 1100 out. GENERAL: The patient is still aphasic but he does smile and nod his head to answer yes and no questions. He says he is comfortable. CHEST: Clear to auscultation. ABDOMEN: G-tube is in place with no obvious bleeding or any signs of infection. Bowel sounds are present. Abdomen is soft with no rebound tenderness. He has had several bowel movements with milk of magnesia. EXTREMITIES: No cyanosis, clubbing, or edema. NEUROLOGICAL: He remains aphasic but pleasantly cooperative. LABORATORY: Coagulation studies remain elevated with a PT of 30.0 with INR of 2.68. HEMATOLOGY: CBC is now stable. His electrolytes on chemistries show a low potassium of 3.4, BUN is near normal at 19 as well as creatinine of 0.49. Glucose 106. Liver functions continue to show elevation of his liver enzymes although they have been improving since admission with his AST now at 233, ALT down to 462 and alkaline phosphatase at 203. MICROBIOLOGY: Urine culture shows no growth at 48 hours. RADIOLOGY: Additional KUB this morning for placement and confirmation of the G -tube showed G-tube projecting at the left mid abdomen with contrast still noted within adjacent small bowel without any extravasation. ASSESSMENT: 1. Hypotension prior to admission felt to be secondary to some dehydration with the patient remaining normotensive since his admission. 2. Syncopal episodes with unsure etiology, although probably contributed to his dehydration along with some constipation issues and deconditioning. 3. Elevated liver function, although showing improvement still has unclear etiology possibly related to ongoing nutritional management. 4. History of recent CVA with residual aphasia with right-sided hemiparesis with CT of the head showing extension with a subacute left MCA territory infarct with residual aphasia and right-sided hemiparesis. 5. Atrial fibrillation on Coumadin therapy although his INR remains high likely secondary to ongoing constipation and slow colonic transient effects. 6. Recent rectal bleed with a colon resection. 7. Constipation secondary to dehydration and previous oral contrast administration with a barium swallow study within the last 5 days before admission. 8. 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 PLAN: We will start him back on his tube feedings today. Will initially start at 15 cc per hour with instructions to check residuals every 4 hours and if residuals are less than 200, to increase rate by 10 cc every 4 hours as residuals continue to show less than 200 with a goal of 45 cc per hour. To maintain his hydration status, he will get 250 cc of free water with each residual check along with the Jevity 1.5 and 3 peña should give him close to 2500 cc of water throughout the day in a 24-hour period. As he is tolerating his tube feeding being resumed, we will back off his IV fluids to keep I&Os balanced. He does have instructions that he could have a monitored mechanical soft diet as long as he is not showing any signs of aspiration. Again, we will closely monitor his residuals with concerns that he may have some gastric paresis placing him at risk for aspiration. He did get several doses of milk of magnesia and x-ray showed that we had good results, there is no longer any significant colon contrast and he has had multiple bowel movements and notes that he feels better. In regards to INR, we will hold his Coumadin today and recheck and resume tomorrow accordingly with those results. Will anticipate probably discharge back to his care facility tomorrow unless he shows any difficulty with tube feedings and once he is to his maximum goal, therefore he should be safe to be discharged to continue his treatment in an outpatient setting. Once discharged, he will continue to be followed by Dr. Rocha in regards to the bradycardia and syncopal episodes. Until discharge, we will continue to monitor the patient closely and treat appropriately. #[id number] [facility]
[2017-04-02] MEDS: ASPIRIN (CHEWABLE) 81 MG TAB GT SCH (09:38)
[2017-04-02] MEDS: NON-FORMULARY MEDICATION 1 EA MIS (Linaclotide [Linzess] 145 MCG) GT SCH (10:17)
[2017-04-02] MEDS ORDERED: WARFARIN SODIUM 5 MG, WARFARIN SODIUM 2.5 MG GT ONE ×2 (10:28)
[2017-04-02] MEDS: DEX 5% W/NACL 0.9% 1000ML 1,000 ML IVS PRN (10:31)
[2017-04-02 10:39] VITALS: BP 103/69; TEMP 97.5; O2SAT 94
[2017-04-02] MEDS ORDERED: SODIUM CHLORIDE 0.9% (FLUSH) 10 ML SYG IV SCH (12:00)
[2017-04-02] MEDS ORDERED: WARFARIN SODIUM 5 MG, WARFARIN SODIUM 2.5 MG PO ONE ×2 (12:00)
[2017-04-02] MEDS ORDERED: WARFARIN SODIUM 2.5 MG TAB ONE (12:49)
[2017-04-02] MEDS ORDERED: WARFARIN SODIUM 5 MG TAB ONE (12:49)
[2017-04-03] MEDS ORDERED: WARFARIN SODIUM 5 MG, WARFARIN SODIUM 2.5 MG PO SCH ×2 (12:00)
--- NOTE | 2017-04-08 13:49 | DS ---
SUPERVISING PHYSICIAN: Izaiah Ward MD DISCHARGE DIAGNOSIS: 1. Hypotension prior to admission felt to be secondary to some dehydration with the patient remaining normotensive since admission. 2. Syncopal episodes with unknown etiology, although probably contributed to his dehydration along with some constipation issues and deconditioning. There is also a question of whether or not he is actually having a seizure type activity during these syncopal episodes. 3. Elevated liver function, showing improvement but still unclear etiology possibly related to ongoing nutritional management. 4. History of recent CVA with residual aphasia with right-sided hemiparesis with CT of the head showing extension with a subacute left MCA territory infarct with residual aphasia and right-sided hemiparesis. 5. Atrial fibrillation on Coumadin therapy with initial INR being elevated, likely secondary to ongoing constipation and slow colonic transient effects with normal INR at time of discharge. 6. Recent rectal bleed with a colon resection and a G-tube placement. 7. Constipation secondary to dehydration and previous oral contrast administration with a barium swallow study within the last 5 days before admission, resolved after giving enemas and milk of magnesia and rehydrated.. 8. 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 Questionable seizure type activity showing as syncopal episodes secondary to extension of his previous stroke. HISTORY OF PRESENT ILLNESS: Mr. Kamara is a 76 year-old male patient who until December of this year has been in fairly good health. In the past he has had a history of atrial fibrillation, hypertension, hyperlipidemia and was on Coumadin. In December of this year he had a rectal bleed and was transferred to [facility]. They took him off his Warfarin for several days to have a colon resection and after surgery his Coumadin was restarted. His INR remained around 1.5 and he was home on January 05 to January 12. He fell in the bathroom at home. He was Care flighted to [facility] in [facility]. He had a stroke and had several complications of the stroke while he was in the hospital at [place] and ended up having some cardiac problems with low heart rate. At that time, they considered placing a pacemaker but several of the physicians there felt that some of his symptoms related to residual medications and affects of his stroke. He was then transferred to [facility] on . Since that time, he has had some syncopal episodes where the family says he "zones out." These symptoms are usually when the patient goes to a sitting position or when he is being worked with with physical therapy. During these times, he has either syncopal episodes or he does not interact with visitors. He stares for long periods of time. These incidences have been increasing in frequency. He was scheduled to see Dr. Rocha for a possible pacemaker insertion and before he could seen in appointment with he had a syncopal episode at [facility]. He was brought to the Emergency Room and per the granddaughter, in the past all these episodes have happened only when he goes to a sitting position but in the last 2 to 3 days they have occurred while he was lying down. Initially, the patient was going to be admitted for observation to observe his cardiac rhythm, his blood pressure as well as other symptoms but while in the Emergency Room he had a syncopal episode where his systolic blood pressure went to the 40s and within a few minutes his blood pressure went up to the 70s and within a few minutes after the initial onset, his systolic blood pressure was in the 100s. His heart rate ranged from 74 [id number] to 104 [id number]. During this time, the patient was unable to focus on anyone. He is at baseline aphasic and he does have residual right-sided hemiparesis. Lab work was done in the Emergency Room and his CBC was within normal limits with elevation of his liver functions noted. At that time he was admitted to the medical/surgical floor for treatment and further evaluation. LABORATORY: CBC on admission was within normal limits as well as at discharge with a white count of 8.4, hemoglobin 14.5, hematocrit 43.4, platelet count 93, 000, differential never showed a left shift. Coagulation studies initially showed a PT of 31.9 with INR of 2.85, at discharge it was down to 25.2 and INR 2.25. Chemistries on admission showed normal electrolytes with potassium of 4.4 , discharge potassium was 3.4, BUN 15, creatinine 0.58. Liver function did show elevation of AST at 389, ALT of 659, alkaline phosphatase 216 after initiation of treatment, initiation of fluids and nutritional status, AST was down to 154, ALT down to 351 and alkaline phosphatase down to 190. Calcium 8.3. Urinalysis was not done but a urine culture showed no growth at 48 hours. RADIOLOGY: Head CT without contrast initially after admission and per radiology interpretation showed large chronic subacute left MCA territory infarction new from January 12, 2017. He had multiple KUBs. Initially, KUB on 01/12 showed oral contrast within the colon, otherwise a remarkable exam. There was no gastric tube that was visualized. Additional KUBs were done after placement of a G-tube. Final KUB on 04/01/17 with contrast per radiology interpretation showed no acute abnormalities and contrast within the adjacent small bowel without any extravasation. HOSPITAL COURSE: Mr. Kamara was admitted as noted in the history of present illness with episodes of syncope and constipation. He did pull his J-tube out and this was successfully placed with a G-tube temporarily. He was resumed on his medications after it was verified that he was no longer constipation and G- tube appeared to be in place. He was started on tube feedings initially at 50 cc per hour that was transitioned to a maximum of 45 cc an hour with residuals that were checked every 6 hours with instructions to hold feedings if greater than 250 and if less 250 on gastric residual volume, to increase by 10 cc per hour. On date of discharge, he was tolerating tube feedings at 45 cc an hour with his normal nutritional supplement. He was also given free water 250 cc every 4 hours throughout the day. He did have some issues with constipation secondary to the ongoing contrast that was given prior to admission for the swallow study. This resolved after giving milk of magnesia and multiple enemas. Clinically, the patient showed to be stable, G-tube was in place, he was tolerating feeding, was no longer showing any episodes of bradycardia that were witnessed. He did not have any syncopal episodes that were witnessed during the hospitalization. On the morning of discharge, he was at his normal rate of nutrition through tube feeding and was clinically well enough to be discharged to continue with treatment in an outpatient setting. The patient was discharged to continue with tube feedings as written orders and activity was as per physical therapy. He was to return to [facility] via ambulance and have close clinical followup with Dr. Peterson. He was to resume his home medications as previously directed and start new prescriptions as instructed. He was to have an INR drawn 3 days post discharge and have those results called to Dr. Peterson's office. He was resumed on his Coumadin at 7.5 mg daily. He was to return to the hospital should he have any concerns or fail to improve or any other concerning symptoms. Patient was without any obvious syncopal episodes but it was felt that possibly this patient may be having some extension of his previous stroke and was therefore having some minor seizures. It was therefore recommended he have followup with Dr. Chakraborty or other neurologist in the near future to further address these issues. Discharge prescriptions included Warfarin 7.5 mg daily. All other medications were resumed as previous. Diet was as prior to hospitalization via G-tube. Activities as per physical therapy. Condition on discharge was stable and improved. #[id number] [facility]
== END 2017-04-02 13:35 | DRG 65 ==
LOC: ER 13:00 → MS 15:54
PROVIDERS: ADMIT Nurse Practitioner Acute Care; ATTEND Nurse Practitioner Family
PROC: 0D20XUZ Change Feeding Device in Upper Intestinal Tract, External Approach (ICD-10-PCS; principal; 2017-03-31)
DX: I63.8 Other cerebral infarction (principal); I69.351 Hemiplegia and hemiparesis following cerebral infarction affecting right dominant side; E86.0 Dehydration; I48.91 Unspecified atrial fibrillation; I95.9 Hypotension, unspecified; R55 Syncope and collapse; I10 Essential (primary) hypertension; E78.5 Hyperlipidemia, unspecified; I69.320 Aphasia following cerebral infarction; R74.8 Abnormal levels of other serum enzymes; K59.01 Slow transit constipation; R00.1 Bradycardia, unspecified; Z88.0 Allergy status to penicillin; Z87.891 Personal history of nicotine dependence; Z79.01 Long term (current) use of anticoagulants; Z93.1 Gastrostomy status

== ENCOUNTER 2017-04-20 17:37 | Emergency (ER) | payer MEDICARE ==
--- NOTE | 2017-04-20 18:37 | ED.PDOC ---
History of Present Illness - General Chief Complaint: Abdominal Pain Stated Complaint: Abdominal discomfort Time Seen by Provider: 04/20/17 17:46 Source: RN notes reviewed, Vital Signs reviewed, family, group home records, old records Exam Limitations: clinical condition - History of Present Illness Initial Comments: Patient was sent from assisted living facility for vomiting and diarrhea. His DrVictorino is concerned it is his gallbladder since his LFT's are elevated. Partner reports he has had vomiting and diarrhea today. He recently has had a lot of chest congestion and has been coughing, productive. He is on Levaquin for this. When he first vomited it was all mucous. He has seemed more lethargic today. Patient denies abd pain but has very limited communication due to CVA. Timing/Duration: 4-6 hours Severity: moderate Improving Factors: nothing Worsening Factors: nothing Associated Symptoms: nausea/vomiting Allergies/Adverse Reactions: Allergies Penicillin G Allergy (Intermediate, Verified 04/20/17 19:06) Rash Home Medications: Ambulatory Orders Acetaminophen [Tylenol] 650 mg GT Q4HR PRN 03/30/17 Aspirin [Aspirin Childrens] 81 mg GT DAILY 03/30/17 Bisacodyl Suppository 10Mg [Dulcolax Suppository 10mg] 10 mg [place] DAILY PRN Linaclotide [Linzess] 145 mcg GT DAILY 03/30/17 Magnesium Hydroxide [Milk Of Magnesia] 400 mg GT DAILY PRN 03/30/17 Promethazine Tab [Phenergan Tablet] 25 mg GT Q4H PRN 03/30/17 Acetaminophen W/ Codeine [Tylenol W/ CODEINE #3] 1 ea PO Q4HR PRN 03/31/17 Non-Formulary Medication 15 - 45 ea GT CONTINUOUS 04/02/17 Warfarin Sodium [Coumadin] 7.5 mg PO DAILY@1200 04/02/17 Warfarin Sodium [Coumadin] 7.5 mg PO DAILY@1200 04/02/17 Ondansetron Odt [Zofran ODT] 8 mg PO Q6HR PRN #20 tab 04/20/17 Review of Systems - Review of Systems Unable to Obtain Due To: clinical condition - almost noncommunicative since CVA Past Medical History (General) - Patient Medical History Hx Seizures: No Hx Stroke: Yes - january 12 Hx Asthma: No Hx of COPD: No Hx Cardiac Disorders: Yes - Atrial fib Hx Congestive Heart Failure: No Hx Pacemaker: No Hx Hypertension: No Hx Diabetes: No Hx MRSA: No - Vaccination History Hx Influenza Vaccination: No Hx Pneumococcal Vaccination: No - Social History Hx Tobacco Use: No Hx Alcohol Use: No Hx Substance Use: No Hx Physical Abuse: No Hx Emotional Abuse: No Family Medical History - Family History Father Living Status: Hx Cardiac Disease: Yes Physical Exam - Physical Exam General Appearance: Comfortable, Frail, No apparent distress, Lethargic Neck: non-tender, normal inspection Respiratory: chest non-tender, lungs clear, normal breath sounds, no respiratory distress, no accessory muscle use Cardiovascular/Chest: regular rate, rhythm, no gallop, no murmur Gastrointestinal/Abdominal: normal bowel sounds, non tender, soft, no organomegaly, no pulsatile mass Neurologic: aphasia, disoriented x 3 Skin Exam: normal color, warm/dry Comments: Vital Signs - 24 hr 04/20/17 04/20/17 18:38 20:19 Temperature 98.8 F Pulse Rate [ 106 H 103 H left] Respiratory 14 14 Rate Blood Pressure 107/72 98/41 [left] O2 Sat by Pulse 93 L 94 L Oximetry Progress - Progress Progress: 04/20/17 21:09 Discussed elevated LFT's with family. They were initially elevated 3 weeks ago and have steadily improved since then. He has no abdominal or RUQ tenderness on exam. He is slightly dehydrated but they did not want to attempt an IV because he is such a difficult stick. He did well with oral hydration. Discussed that symptoms are most likely a GI virus or related to large amounts of ingested mucous. Will d/c back to assisted living facility with Rx for Zofran ODT. Was not able to get GB sonogram today. Did recommend GB & Liver sonogram on as outpatient basis. - Results/Orders Results/Orders: Laboratory Tests 04/20/17 04/20/17 04/20/17 18:51 18:51 19:35 WBC 16.3 H RBC 5.22 Hgb 15.5 Hct 46.9 MCV 89.8 MCH 29.8 MCHC 33.1 RDW 14.5 Plt Count 241 MPV 9.1 Absolute Neuts (auto) 14.40 H Absolute Lymphs (auto) 1.40 Absolute Monos (auto) 0.50 Absolute Eos (auto) 0.00 Absolute Basos (auto) 0.00 Neutrophils % 88.1 H Lymphocytes % 8.3 L Monocytes % 3.0 Eosinophils % 0.3 L Basophils % 0.3 Sodium 137 Potassium 4.8 Chloride 96 L Carbon Dioxide 31 Anion Gap 14.8 BUN 26 H Creatinine 0.71 BUN/Creatinine Ratio 36.6 H Random Glucose 123 H Serum Osmolality 279.9 Calcium 8.6 Total Bilirubin 0.5 AST 129 H ALT 200 H Alkaline Phosphatase 203 H Serum Total Protein 7.0 Albumin 3.3 Globulin 3.7 H Albumin/Globulin Ratio 0.9 L Amylase 113 H Lipase 26 Urine Color Yellow Urine Appearance Cloudy Urine pH 8.5 H Ur Specific Webster 1.015 Urine Protein 100 H Urine Glucose (UA) Negative Urine Ketones Negative Urine Blood Trace-intact H Urine Nitrite Negative Urine Bilirubin Negative Urine Urobilinogen 0.2 Ur Leukocyte Esterase Small H Urine RBC 3-5 H Urine WBC 5-10 H Ur Epithelial Cells 0-1 Calcium Oxalate Crystal 1+ Amorphous Sediment 2+ Urine Bacteria 1+ Urine Mucus Trace Departure - Departure Clinical Impression: Nausea vomiting and diarrhea, Dehydration, mild, History of CVA ( cerebrovascular accident) Time of Disposition: 21:13 Disposition: Discharge to SNF Condition: Fair Departure Forms: ED Discharge - Pt. Copy, Patient Portal Self Enrollment Instructions: DI for Viral Gastroenteritis -- Adult Diet: resume usual diet - Increase fluid/water intake Activity: as per physical therapy Referrals: Papo Peterson MD [Primary Care Provider] - 1-2 Days Prescriptions: Ondansetron Odt [Zofran ODT] 8 mg PO Q6HR PRN #20 tab PRN Reason: Nausea/Vomiting Home Medications: Ambulatory Orders Acetaminophen [Tylenol] 650 mg GT Q4HR PRN 03/30/17 Aspirin [Aspirin Childrens] 81 mg GT DAILY 03/30/17 Bisacodyl Suppository 10Mg [Dulcolax Suppository 10mg] 10 mg [place] DAILY PRN Linaclotide [Linzess] 145 mcg GT DAILY 03/30/17 Magnesium Hydroxide [Milk Of Magnesia] 400 mg GT DAILY PRN 03/30/17 Promethazine Tab [Phenergan Tablet] 25 mg GT Q4H PRN 03/30/17 Acetaminophen W/ Codeine [Tylenol W/ CODEINE #3] 1 ea PO Q4HR PRN 03/31/17 Non-Formulary Medication 15 - 45 ea GT CONTINUOUS 04/02/17 Warfarin Sodium [Coumadin] 7.5 mg PO DAILY@1200 04/02/17 Warfarin Sodium [Coumadin] 7.5 mg PO DAILY@1200 04/02/17 Ondansetron Odt [Zofran ODT] 8 mg PO Q6HR PRN #20 tab 04/20/17
[2017-04-20] MEDS ORDERED: ONDANSETRON ODT 8 MG TAB SL ONE (20:09)
[2017-04-20 20:20] VITALS: O2SAT 94
[2017-04-20 21:32] VITALS: BP 120/40; TEMP 97.9
== END 2017-04-20 21:32 ==
LOC: ER 17:37
DX: R11.2 Nausea with vomiting, unspecified (principal); R19.7 Diarrhea, unspecified; E86.0 Dehydration; I69.320 Aphasia following cerebral infarction; I48.91 Unspecified atrial fibrillation; Z79.01 Long term (current) use of anticoagulants; Z79.899 Other long term (current) drug therapy; Z79.82 Long term (current) use of aspirin; Z88.0 Allergy status to penicillin

== ENCOUNTER 2017-08-18 16:50 | Emergency (ER) | payer MEDICARE ==
[2017-08-18] MEDS ORDERED: ONDANSETRON INJ 4 MG/2 ML VIAL IV ONE (17:32)
[2017-08-18] MEDS ORDERED: SODIUM CHLORIDE 0.9% 1000ML 1,000 ML IVS ONE (17:32)
--- NOTE | 2017-08-18 17:37 | ED.PDOC ---
History of Present Illness - General Chief Complaint: General Stated Complaint: Lethargy, Vomiting Time Seen by Provider: 08/18/17 17:04 Source: RN notes reviewed, Vital Signs reviewed, shelter records Additional Information: Per NH nurse - concern was for scrotal abscess and possible lethargy. Pt in no distress. Scrotal abscess draining. Nontoxic appearing. Labs obtained, wound culture obtained, and abscess drained of about 5 to 7 ml of pus. - History of Present Illness Timing/Duration: unsure Severity: moderate Improving Factors: rest Worsening Factors: movement Associated Symptoms: denies symptoms Allergies/Adverse Reactions: Allergies Penicillin G Allergy (Intermediate, Verified 08/18/17 17:08) Rash Home Medications: Ambulatory Orders Acetaminophen [Tylenol] 650 mg GT Q4HR PRN 03/30/17 Aspirin [Aspirin Childrens] 81 mg GT DAILY 03/30/17 Bisacodyl Suppository 10Mg [Dulcolax Suppository 10mg] 10 mg CA DAILY PRN Linaclotide [Linzess] 145 mcg GT DAILY 03/30/17 Magnesium Hydroxide [Milk Of Magnesia] 400 mg GT DAILY PRN 03/30/17 Promethazine Tab [Phenergan Tablet] 25 mg GT Q4H PRN 03/30/17 Acetaminophen W/ Codeine [Tylenol W/ CODEINE #3] 1 ea PO Q4HR PRN 03/31/17 Non-Formulary Medication 15 - 45 ea GT CONTINUOUS 04/02/17 Warfarin Sodium [Coumadin] 7.5 mg PO DAILY@1200 04/02/17 Warfarin Sodium [Coumadin] 7.5 mg PO DAILY@1200 04/02/17 Ondansetron Odt [Zofran ODT] 8 mg PO Q6HR PRN #20 tab 04/20/17 Mupirocin 2 % Oint [Bactroban Oint] 1 applic TOP TID #1 tube 08/18/17 Review of Systems - Review of Systems Unable to Obtain Due To: clinical condition - s/p CVA nonverbal Past Medical History (General) - Patient Medical History Hx Seizures: No Hx Stroke: Yes Hx Asthma: No Hx of COPD: No Hx Cardiac Disorders: Yes - A-fib Hx Congestive Heart Failure: No Hx Pacemaker: No Hx Hypertension: Yes Hx Diabetes: No Hx Cancer: No Hx MRSA: No - Vaccination History Hx Tetanus, Diphtheria Vaccination: No Hx Influenza Vaccination: No Hx Pneumococcal Vaccination: No - Social History Hx Tobacco Use: No Hx Chewing Tobacco Use: No Hx Alcohol Use: No Hx Substance Use: No Hx Substance Use Treatment: No Hx Depression: No Feels Threatened In Home Enviroment: No Feels Threatened In a Relationship: No Hx Physical Abuse: No Hx Emotional Abuse: No Hx Suspected Abuse: No - Activities of Daily Living Penitentiary[facility]isted Living (if applicable):: [facility] Family Medical History - Family History Father Living Status: Hx Cardiac Disease: Yes Physical Exam - Physical Exam General Appearance: Alert, Comfortable, No apparent distress, Well Developed, Well Groomed, Well Hydrated, Well Nourished Eye Exam: bilateral normal Ears, Nose, Throat: hearing grossly normal, normal ENT inspection, normal pharynx Neck: non-tender, full range of motion, supple Respiratory: no respiratory distress, no accessory muscle use Cardiovascular/Chest: irregularly irregular Gastrointestinal/Abdominal: non tender, soft Back Exam: normal inspection Extremity: non-tender 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 draining pus. decreased in size to about 2 cm diameter after expressing pus. Progress - Progress Progress: 08/18/17 18:07 Nontoxic. Ok to go back to [place] to complete oral abx course as well as routine wound care with warm compress and topical Abxs tid. - Results/Orders Results/Orders: 08/18/17 17:32 Sodium Chloride 0.9% 1000ML [Ns 1000 ml] 1,000 ml IVS ONCE URINALYSIS Stat 08/18/17 17:35 CRP [C-REACTIVE PROTEIN] Stat 08/18/17 17:44 PTT [PARTIAL THROMBOPLASTIN TIME] Stat 08/18/17 17:53 WOUND CULTURE Stat Laboratory Results - last 24 hr 08/18/17 08/18/17 17:35 17:35 WBC 10.8 RBC 4.72 Hgb 14.3 Hct 42.8 MCV 90.5 MCH 30.3 MCHC 33.5 RDW 12.7 Plt Count 232 MPV 8.9 Absolute Neuts (auto) 9.00 H Absolute Lymphs (auto) 1.40 Absolute Monos (auto) 0.30 Absolute Eos (auto) 0.00 Absolute Basos (auto) 0.00 Neutrophils % 83.5 H Lymphocytes % 13.0 L Monocytes % 3.2 Eosinophils % 0.1 L Basophils % 0.2 Sodium 139 Potassium 3.5 L Chloride 101 Carbon Dioxide 28 Anion Gap 13.5 BUN 15 Creatinine 0.65 BUN/Creatinine Ratio 23.1 H Random Glucose 121 H Serum Osmolality 279.6 Calcium 8.9 Total Bilirubin 1.1 H AST 18 ALT 15 Alkaline Phosphatase 117 Serum Total Protein 7.0 Albumin 3.5 Globulin 3.5 Albumin/Globulin Ratio 1.0 L Departure - Departure Clinical Impression: Scrotal abscess Time of Disposition: 18:20 Disposition: Discharge to Home or Self Care Condition: Fair Departure Forms: ED Discharge - Pt. Copy, Patient Portal Self Enrollment Instructions: DI for Scrotal Abscess Referrals: Papo Peterson MD [Primary Care Provider] - 1-5 Days Prescriptions: Mupirocin 2 % Oint [Bactroban Oint] 1 applic TOP TID #1 tube Home Medications: Ambulatory Orders Acetaminophen [Tylenol] 650 mg GT Q4HR PRN 03/30/17 Aspirin [Aspirin Childrens] 81 mg GT DAILY 03/30/17 Bisacodyl Suppository 10Mg [Dulcolax Suppository 10mg] 10 mg CA DAILY PRN Linaclotide [Linzess] 145 mcg GT DAILY 03/30/17 Magnesium Hydroxide [Milk Of Magnesia] 400 mg GT DAILY PRN 03/30/17 Promethazine Tab [Phenergan Tablet] 25 mg GT Q4H PRN 03/30/17 Acetaminophen W/ Codeine [Tylenol W/ CODEINE #3] 1 ea PO Q4HR PRN 03/31/17 Non-Formulary Medication 15 - 45 ea GT CONTINUOUS 04/02/17 Warfarin Sodium [Coumadin] 7.5 mg PO DAILY@1200 04/02/17 Warfarin Sodium [Coumadin] 7.5 mg PO DAILY@1200 04/02/17 Ondansetron Odt [Zofran ODT] 8 mg PO Q6HR PRN #20 tab 04/20/17 Mupirocin 2 % Oint [Bactroban Oint] 1 applic TOP TID #1 tube 08/18/17 Additional Instructions: Complete full course of oral antibiotics. Wound care with dressing changes (4 x 4 gauze) three times a day. Warm compress three times a day. Topical antibiotics three times a day. Return to ER if condition worsens.
[2017-08-18 19:26] VITALS: BP 140/88; TEMP 97.9; O2SAT 96
== END 2017-08-18 19:26 | disposition home or self-care (01) ==
LOC: ER 16:50
DX: N49.2 Inflammatory disorders of scrotum (principal); I48.91 Unspecified atrial fibrillation; I10 Essential (primary) hypertension; I69.928 Other speech and language deficits following unspecified cerebrovascular disease; Z79.01 Long term (current) use of anticoagulants; Z79.899 Other long term (current) drug therapy
CPT/HCPCS: 36415; 80053; 85025; 85610; 85730; 86140; 87070; J2405; J7030

== ENCOUNTER 2019-01-05 17:30 | Emergency (ER) | payer MEDICARE, MEDICAID ==
--- NOTE | 2019-01-05 17:50 | ED.PDOC ---
History of Present Illness - General Chief Complaint: Syncope/Near Syncope Stated Complaint: passed out Time Seen by Provider: 01/05/19 17:46 Source: RN notes reviewed, Vital Signs reviewed, EMS notes reviewed, family Additional Information: 78 YEAR OLD BROUGHT BY EMS FROM [facility] AFTER A BRIEF EPISODE OF [place] WILE THE FAMILY WITNESSED HE HAS RIGHT CVA WITH RESIDUAL LET SIDED WEAKNESS ATRIAL FIBRILLATION PE HE IS ALERT LOW GRADE FEVER NAUSEATED VS STABLE RS CLEAR HS IRREGULAR CONTROLLED VENTRICULAR RESPONSE HR 99 / MIN EXTREMITIES RIGHT UPPER EXTREMITY IS COLD ( NOTED IT HAS BEEN COLD EVER SI NCE THE CVA THE CVA IS FROM ATRIAL FIB HE HAD TO DISCONTINUE DUE TO GI BLEED AND AFTER THE FEW DAYS OF DISCONTINUATION 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 - History of Present Illness Timing/Duration: 1/2 hour Improving Factors: nothing Worsening Factors: nothing Associated Symptoms: denies symptoms Allergies/Adverse Reactions: Allergies Penicillin G Allergy (Intermediate, Verified 08/18/17 17:08) Rash Home Medications: Ambulatory Orders Acetaminophen [Tylenol] 650 mg GT Q4HR PRN 03/30/17 Apixaban [Eliquis] 5 mg PO BID 08/19/17 Diltiazem HCl 60 mg PO Q8HR 08/19/17 Fludrocortisone Acetate 0.1 mg PO DAILY 08/19/17 Lactobacillus [Acidophilus] 1 cap PO BID 08/19/17 Lidocaine 5% Patch [Lidoderm Patch] 1 ea TOP BID 08/19/17 Silodosin [Rapaflo] 4 mg PO DAILY 08/19/17 Cefuroxime Axetil [Ceftin] 500 mg PO Q12H 10 Days tablet 01/05/19 Levalbuterol Nebs [Xopenex NEBS] 0.63 mg NEB Q3H PRN 01/05/19 Review of Systems - Review of Systems Constitutional: States: no symptoms reported EENTM: States: no symptoms reported Respiratory: States: no symptoms reported Cardiology: States: no symptoms reported Gastrointestinal/Abdominal: States: no symptoms reported Genitourinary: States: no symptoms reported Musculoskeletal: States: no symptoms reported Skin: States: no symptoms reported Neurological: States: no symptoms reported Endocrine: States: no symptoms reported Hematologic/Lymphatic: States: no symptoms reported Past Medical History (General) - Patient Medical History Hx Seizures: No Hx Stroke: Yes Hx Asthma: No Hx of COPD: No Hx Cardiac Disorders: Yes - afib Hx Congestive Heart Failure: No Hx Pacemaker: No Hx Hypertension: Yes Hx Diabetes: No Hx Cancer: No Hx MRSA: Yes - 2016 MRSA Source:: Wound - Vaccination History Hx Tetanus, Diphtheria Vaccination: No Hx Influenza Vaccination: Yes Hx Pneumococcal Vaccination: Yes Immunizations Up to Date: Yes - Social History Hx Tobacco Use: No Hx Chewing Tobacco Use: No Hx Alcohol Use: No Hx Substance Use: No Hx Substance Use Treatment: No Hx Depression: No Hx Physical Abuse: No Hx Emotional Abuse: No Hx Suspected Abuse: No - Activities of Daily Living Snf/Assisted Living (if applicable):: [facility] - Triage Comment ED Triage Comment: Pt brought in by EMS. Family arrived to ER bedside. glucose by ems -93. Family Medical History - Family History Father Living Status: Hx Cardiac Disease: Yes Physical Exam - Physical Exam General Appearance: Alert Eye Exam: bilateral normal Ears, Nose, Throat: hearing grossly normal, normal ENT inspection, normal phary nx Neck: non-tender, full range of motion, supple Cardiovascular/Chest: normal peripheral pulses, no edema, no gallop, no JVD, no murmur Gastrointestinal/Abdominal: normal bowel sounds, non tender, soft, no organomegaly, no pulsatile mass Extremity: normal range of motion, non-tender, normal inspection Neurologic: alert, other - HE HAS APHASIA RIGHT SIDED FLACID WEAKNESS OF UPPER EXTREMITY AND IT ALSO FEELS COLD RIGHT LOWER EXTREMITY IS ALSO WEAK Skin Exam: normal color Progress - Results/Orders Results/Orders: Laboratory Tests 01/05/19 01/05/19 01/05/19 17:47 17:47 17:47 WBC 10.9 H RBC 4.71 Hgb 14.1 Hct 42.2 MCV 89.6 MCH 30.0 MCHC 33.5 RDW 14.3 Plt Count 184 MPV 8.9 Absolute Neuts (auto) 8.80 H Absolute Lymphs (auto) 1.20 Absolute Monos (auto) 0.70 Absolute Eos (auto) 0.10 Absolute Basos (auto) 0.10 Neutrophils % 81.1 H Lymphocytes % 11.1 L Monocytes % 6.0 Eosinophils % 1.1 Basophils % 0.7 PT 11.4 H INR 1.14 PTT (SP) 26.8 Sodium 136 Potassium 3.9 Chloride 100 L Carbon Dioxide 26 Anion Gap 13.9 BUN 18 Creatinine 0.86 BUN/Creatinine Ratio 20.9 H Random Glucose 89 Serum Osmolality 273.3 L Calcium 8.6 Total Bilirubin 1.2 H AST 26 ALT 14 Alkaline Phosphatase 105 Serum Total Protein 7.6 Albumin 3.8 Globulin 3.8 H Albumin/Globulin Ratio 1.0 L Urine Color Urine Appearance Urine pH Ur Specific [place] Urine Protein Urine Glucose (UA) Urine Ketones Urine Blood Urine Nitrite Urine Bilirubin Urine Urobilinogen Ur Leukocyte Esterase Urine RBC Urine WBC Ur Epithelial Cells Urine Bacteria 01/05/19 19:25 WBC RBC Hgb Hct MCV MCH MCHC RDW Plt Count MPV Absolute Neuts (auto) Absolute Lymphs (auto) Absolute Monos (auto) Absolute Eos (auto) Absolute Basos (auto) Neutrophils % Lymphocytes % Monocytes % Eosinophils % Basophils % PT INR PTT (SP) Sodium Potassium Chloride Carbon Dioxide Anion Gap BUN Creatinine BUN/Creatinine Ratio Random Glucose Serum Osmolality Calcium Total Bilirubin AST ALT Alkaline Phosphatase Serum Total Protein Albumin Globulin Albumin/Globulin Ratio Urine Color Dk yellow Urine Appearance Cloudy Urine pH 6.5 Ur Specific [place] 1.020 Urine Protein 30 Urine Glucose (UA) Negative Urine Ketones 15 H Urine Blood Trace-intact H Urine Nitrite Positive H Urine Bilirubin Negative Urine Urobilinogen 2.0 H Ur Leukocyte Esterase Trace H Urine RBC 1-3 Urine WBC 10-20 H Ur Epithelial Cells 3-5 Urine Bacteria 3+ H 20.00 CATH UA SUGGESTIVE OF URINARY TRACT INFECTION WILL GIVE A DOSE OF IV MEFOXIN FOLLOWED BY CEFTIN 500 MG PO BID X 10 DAYS Departure - Departure Clinical Impression: Urinary tract infection, CVA, old, aphasia, Atrial fibrillation Time of Disposition: 22:15 Disposition: Discharge to SNF Condition: Good Departure Forms: ED Discharge - Pt. Copy, Patient Portal Self Enrollment Referrals: Papo Peterson MD [Primary Care Provider] - 1-2 Weeks Prescriptions: Cefuroxime Axetil [Ceftin] 500 mg PO Q12H 10 Days tablet Home Medications: Ambulatory Orders Acetaminophen [Tylenol] 650 mg GT Q4HR PRN 03/30/17 Apixaban [Eliquis] 5 mg PO BID 08/19/17 Diltiazem HCl 60 mg PO Q8HR 08/19/17 Fludrocortisone Acetate 0.1 mg PO DAILY 08/19/17 Lactobacillus [Acidophilus] 1 cap PO BID 08/19/17 Lidocaine 5% Patch [Lidoderm Patch] 1 ea TOP BID 08/19/17 Silodosin [Rapaflo] 4 mg PO DAILY 08/19/17 Cefuroxime Axetil [Ceftin] 500 mg PO Q12H 10 Days tablet 01/05/19 Levalbuterol Nebs [Xopenex NEBS] 0.63 mg NEB Q3H PRN 01/05/19 Comments: SUGGEST TAKE THE CEFTIN PRESCRIBED IF FEVER PERSISTS PLEASE RETURN SAME WAS DISCUSSED WITH HIS AND FIRST DAUGHTER
[2019-01-05] MEDS ORDERED: ONDANSETRON INJ 4 MG/2 ML VIAL IV ONE (18:10)
--- NOTE | 2019-01-05 18:30 | RAD ---
EXAM: Chest,1 View CLINICAL INDICATION: Fever COMPARISON: 03/12/2017 FINDINGS: A single view of the chest was obtained. The heart size is mildly enlarged. The pulmonary vascularity is unremarkable. The lungs are clear. There is no consolidation, infiltrate, pleural effusion, or pneumothorax. IMPRESSION: No evidence of active pulmonary disease. Electronically signed by: Sathish Pisano MD 01/05/2019 6:27 PM CDT
--- NOTE | 2019-01-05 18:32 | CT ---
EXAM: CT head without contrast CLINICAL INDICATION: Altered mental status COMPARISON: 03/31/2017 TECHNIQUE: The CT scan was done using contiguous axial 2.5 mm sections through the brain. This exam was performed according to our departmental dose-optimization program, which includes automated exposure control, adjustment of the mA and/or kV according to patient size and/or use of iterative reconstruction technique. FINDINGS: There is no midline shift, mass effect, or extraaxial fluid collection. There is no evidence of acute intracranial hemorrhage, mass lesion, or cerebral edema. There is encephalomalacia consistent with old infarct in the left MCA distribution involving portions of the left frontal, temporal, and parietal lobes. Diffuse mild cerebral atrophy is noted. Bone window images reveal no evidence of a skull fracture. IMPRESSION: No evidence of an acute intracranial process. 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 Electronically signed by: Sathish Pisano MD 01/05/2019 6:29 PM CDT
[2019-01-05] MEDS ORDERED: SODIUM CHL 0.9% 50ML MIN-BAG+ 50 ML IVPB ONE (19:55)
[2019-01-05] MEDS ORDERED: cefOXitin SODIUM 1 GM in SODIUM CHL 0.9% 50ML MIN-BAG+ 50 ML IVPB ONE (19:55)
[2019-01-05] MEDS ORDERED: ACETAMINOPHEN 325 MG TAB PO ONE (20:10)
[2019-01-05 22:39] VITALS: O2SAT 94
[2019-01-05 22:40] VITALS: BP 114/71; TEMP 99.4
== END 2019-01-05 22:42 ==
LOC: ER 17:30
DX: N39.0 Urinary tract infection, site not specified (principal); I69.320 Aphasia following cerebral infarction; I69.354 Hemiplegia and hemiparesis following cerebral infarction affecting left non-dominant side; I48.91 Unspecified atrial fibrillation; R55 Syncope and collapse; R11.0 Nausea; I10 Essential (primary) hypertension; Z79.899 Other long term (current) drug therapy; Z79.01 Long term (current) use of anticoagulants; Z88.0 Allergy status to penicillin
CPT/HCPCS: 70450; 71045; 80053; 81001; 85025; 85610; 85730; 87086; 87502; 93005; J0694; J2405; J7050

== ENCOUNTER → 2020-02-07 | Outpatient (CLI) | payer MEDICARE, MEDICAID | LOC: GOCC 11:47 | PROVIDERS: ATTEND Internal Medicine | DX: R50.9 Fever, unspecified (principal); R05 Cough; J06.9 Acute upper respiratory infection, unspecified ==

== ENCOUNTER 2020-05-03 17:25 | Inpatient (IN) | payer MEDICARE, OTHER ==
[2020-05-03] MEDS ORDERED: ONDANSETRON INJ 4 MG/2 ML VIAL IV ONE (17:50)
--- NOTE | 2020-05-03 17:54 | ED.PDOC ---
History of Present Illness - General Stated Complaint: fever, N/V Time Seen by Provider: 05/03/20 17:32 - History of Present Illness Initial Comments: 80 M +pmh [facility] for fever without source. They state pt has had nausea with vomiting, fever, cough, exposure to SARS-CoV-2 pt, and has been acting differently. When asked about how, they stat pt still responds appropriately, remains non-verbal, but just seems different. Pt endorses cough but denies the n/v. Denies alleviating/aggravating factors. He denies CP, SOB, abdominal pain, dysuria, n/v/d, headache, or any pain at all. Pt denies any other complaints at this time. Appropriate PPE of surgical mask, gown, gloves, and eye protection (if encounter >5 minutes) utilized with every patient encounter; in accordance with hospital policy. Review of Systems - Review of Systems Constitutional: States: chills, fever EENTM: Denies: nose congestion, throat pain Respiratory: States: cough. Denies: short of breath Cardiology: Denies: chest pain, edema, palpitations Gastrointestinal/Abdominal: States: nausea, vomiting. Denies: abdominal pain, diarrhea Genitourinary: Denies: dysuria, pain Musculoskeletal: Denies: back pain, muscle pain, neck pain Skin: Denies: change in color, rash Neurological: States: other - denies dizziness. Denies: headache Endocrine: Denies: excessive sweating, unexplained weight loss Past Medical History (General) - Patient Medical History Hx Seizures: No Hx Stroke: Yes Hx Asthma: No Hx of COPD: No Hx Cardiac Disorders: Yes - afib Hx Congestive Heart Failure: No Hx Pacemaker: No Hx Hypertension: Yes Hx Diabetes: No Hx Cancer: No Hx MRSA: Yes - 2016 MRSA Source:: Wound - Vaccination History Hx Tetanus, Diphtheria Vaccination: No Hx Influenza Vaccination: Yes Hx Pneumococcal Vaccination: Yes - Social History Hx Tobacco Use: No Hx Chewing Tobacco Use: No Hx Alcohol Use: No Hx Substance Use: No Hx Substance Use Treatment: No Hx Depression: No Hx Physical Abuse: No Hx Emotional Abuse: No Hx Suspected Abuse: No Family Medical History - Family History Father Living Status: Hx Cardiac Disease: Yes Physical Exam - Physical Exam General Appearance: Alert, Comfortable Eye Exam: bilateral normal ENT Exam: normal ENT inspection Neck: full range of motion, supple, normal inspection Respiratory: lungs clear, normal breath sounds, no respiratory distress, no ac cessory muscle use Cardiovascular/Chest: normal peripheral pulses, no murmur, irregularly irregular, other - regular rate, no JVD Gastrointestinal/Abdominal: normal bowel sounds, non tender, soft, no organomegaly, no pulsatile mass Extremity: normal inspection, no pedal edema Neurologic: alert, other - nonverbal but at baseline Skin Exam: normal color, warm/dry, other - no rash Progress - Progress Progress: Presents with fever without source. Pt has been exposed to SARS-CoV-2 pt but is more likely to be with UTI. I will evaluate labs, imaging, EKG, provide appropriate pharmacotherapy, and continue to monitor/reassess. Disposition will depend on EKG, labs, imaging, and pt's overall course in ED. Yandel Hardin DO [facility]: [phone] I have consulted with hospitalist Prisca Velasco and discussed pt's case in ED. She agrees with admission. Multiple rechecks of pt throughout ED course. VSS, NAD. Pt has had improvement in clinical status with no decompensation throughout ED course. - Results/Orders Results/Orders: EKG @1731 Read @1735 Afib rate controlled @99, nl axis, QRS and QTc wnl, no ST elevations/depressions, nonspecific ST/T-wave changes. No STEMI. Vital Signs - 24 hr 05/03/20 05/03/20 05/03/20 17:46 17:50 18:25 Temperature 102.5 F H 102.5 F H Pulse Rate [ 105 H 105 H 98 H brachial] Respiratory 20 20 18 Rate Blood Pressure 147/91 146/94 [Left Arm] O2 Sat by Pulse 97 98 Oximetry 05/03/20 19:00 Temperature Pulse Rate [ 86 brachial] Respiratory 20 Rate Blood Pressure 138/99 [Left Arm] O2 Sat by Pulse 96 Oximetry 05/03/20 18:00 EKG STAT EKG STAT 05/03/20 18:26 URINE CULTURE W/COLONY COUNT Stat 05/03/20 18:30 SARS-COV2 PCR HIGH RISK MC Stat 05/03/20 19:24 BLOOD CULTURE Stat 05/03/20 20:10 ED Intent to Admit Routine 05/03/20 20:12 Azithromycin IV [Zithromax IV] 500 mg Sodium Chloride 0.9% 250Ml [NS 250ml] 250 ml IVPB ONCE 05/03/20 20:18 INFLUENZA A & B BY PCR Stat Laboratory Results - last 24 hr 05/03/20 05/03/20 05/03/20 18:08 18:08 18:08 WBC 6.8 RBC 4.45 L Hgb 13.2 L Hct 38.8 L MCV 87.3 MCH 29.6 MCHC 34.0 RDW 13.7 Plt Count 164 MPV 8.5 Absolute Neuts (auto) 5.50 Absolute Lymphs (auto) 0.90 L Absolute Monos (auto) 0.30 Absolute Eos (auto) 0.00 Absolute Basos (auto) 0.00 Neutrophils % 81.2 H Lymphocytes % 13.3 L Monocytes % 5.0 Eosinophils % 0.1 L Basophils % 0.4 D-Dimer, Quantitative < 131.0 L Sodium 137 Potassium 3.4 L Chloride 100 L Carbon Dioxide 27 Anion Gap 13.4 BUN 18 Creatinine 0.90 BUN/Creatinine Ratio 20.0 Random Glucose 95 Serum Osmolality 275.5 Lactic Acid Calcium 8.1 L Total Bilirubin 1.1 H AST 36 ALT 19 Alkaline Phosphatase 127 H Troponin I Serum Total Protein 7.1 Albumin 3.5 Globulin 3.6 H Albumin/Globulin Ratio 1.0 L Urine Color Urine Appearance Urine pH Ur Specific [place] Urine Protein Urine Glucose (UA) Urine Ketones Urine Blood Urine Nitrite Urine Bilirubin Urine Urobilinogen Ur Leukocyte Esterase Urine RBC Urine WBC Ur Epithelial Cells Urine Bacteria Urine Mucus 05/03/20 05/03/20 05/03/20 18:08 18:08 18:26 WBC RBC Hgb Hct MCV MCH MCHC RDW Plt Count MPV Absolute Neuts (auto) Absolute Lymphs (auto) Absolute Monos (auto) Absolute Eos (auto) Absolute Basos (auto) Neutrophils % Lymphocytes % Monocytes % Eosinophils % Basophils % D-Dimer, Quantitative Sodium Potassium Chloride Carbon Dioxide Anion Gap BUN Creatinine BUN/Creatinine Ratio Random Glucose Serum Osmolality Lactic Acid 1.6 Calcium Total Bilirubin AST ALT Alkaline Phosphatase Troponin I 0.03 Serum Total Protein Albumin Globulin Albumin/Globulin Ratio Urine Color Yellow Urine Appearance Cloudy Urine pH 6.0 Ur Specific [place] 1.020 Urine Protein Trace Urine Glucose (UA) Negative Urine Ketones 40 H Urine Blood Trace-intact H Urine Nitrite Positive H Urine Bilirubin Negative Urine Urobilinogen 4.0 H Ur Leukocyte Esterase Trace H Urine RBC 0-1 Urine WBC 10-20 H Ur Epithelial Cells 0-1 Urine Bacteria 4+ H Urine Mucus Small EXAM DESCRIPTION: XR Chest, 1 View CLINICAL HISTORY: 80 years Male Fever, no source TECHNIQUE: One view of the chest. COMPARISON: 01/05/2019 FINDINGS: Th ere are small patchy airspace infiltrates in the right mid and lower lung. No pleural effusion or pneumothorax. Stable cardiomediastinal silhouette. No acute osseous abnormality. IMPRESSION: Small patchy airspace infiltrates in the right mid and lower lung concerning for infection. Viral infection not excluded. Electronically signed by: Ariella Carney MD 05/03/2020 6:30 PM CDT - 1973 I have reviewed imaging and official radiology read and agree with above findings. Departure - Departure Clinical Impression: History of CVA (cerebrovascular accident), Suspected severe acute respiratory syndrome coronavirus 2 (SARS-CoV-2) infection Urinary tract infection Qualifiers: Urinary tract infection type: site unspecified Hematuria presence: with hematuria Qualified Code(s): N39.0 - Urinary tract infection, site not specified Atrial fibrillation Qualifiers: Atrial fibrillation type: longstanding persistent Qualified Code(s): I48.11 - Longstanding persistent atrial fibrillation Community acquired pneumonia Qualifiers: Laterality: right Lung location: lower lobe of lung Qualified Code(s): J18.9 - Pneumonia, unspecified organism AMS (altered mental status) Qualifiers: Altered mental status type: disorientation Qualified Code(s): R41.0 - Disorientation, unspecified Time of Disposition: 20:06 Disposition: Admit Patient Condition: Good Home Medications: Ambulatory Orders Apixaban [Eliquis] 5 mg PO BID 08/19/17 Diltiazem HCl 60 mg PO Q8HR 08/19/17 Fludrocortisone Acetate 0.1 mg PO DAILY 08/19/17 Lactobacillus [Acidophilus] 1 cap PO BID 08/19/17 Levalbuterol Nebs [Xopenex NEBS] 0.63 mg NEB Q3H PRN 01/05/19 Ascorbic Acid [Chewable Vitamin C] 500 mg PO DAILY 05/03/20 Cetirizine HCl [Zyrtec] 10 mg PO DAILY 05/03/20 Dextromethorphan-Guaifenesin [Guaifenesin-Dm 100-10 mg/5Ml] 10 ml PO Q4H PRN 05/03/20 Guaifenesin 400 mg PO Q4H PRN 05/03/20 Lidocaine 4% Topical [Xylocaine 4% Topical] 1 applic TOP BID 05/03/20 Magnesium Hydroxide [Milk Of Magnesia] 30 ml PO BID PRN 05/03/20 Silodosin 4 mg PO DAILY 05/03/20 Decision To Admit - Decistion To Admit Decision to Admit Reason: Admit from ER Decision to Admit Date: 05/03/20 Decision to Admit Time: 20:06
--- NOTE | 2020-05-03 18:31 | RAD ---
EXAM DESCRIPTION: XR Chest, 1 View CLINICAL HISTORY: 80 years Male Fever, no source TECHNIQUE: One view of the chest. COMPARISON: 01/05/2019 FINDINGS: There are small patchy airspace infiltrates in the right mid and lower lung. No pleural effusion or pneumothorax. Stable cardiomediastinal silhouette. No acute osseous abnormality. IMPRESSION: Small patchy airspace infiltrates in the right mid and lower lung concerning for infection. Viral infection not excluded. Electronically signed by: Ariella Carney MD 05/03/2020 6:30 PM CDT
[2020-05-03] MEDS ORDERED: levoFLOXacin 750MG IV 750 MG in PREMIX BAG 1 BAG IVPB ONE (18:51)
[2020-05-03] MEDS ORDERED: AZITHROMYCIN IV 500 MG in SODIUM CHLORIDE 0.9% 250ML 250 ML IVPB ONE (20:12)
[2020-05-03] MEDS ORDERED: DEXAMETHASONE INJ 10 MG/ML VIAL IV ONE (20:12)
--- NOTE | 2020-05-03 20:35 | HP ---
SUPERVISING PHYSICIAN: Hunter Almeida MD CHIEF COMPLAINT: Fever, nausea and vomiting. HISTORY OF PRESENT ILLNESS: This is an 80 year-old male patient who is a resident of [facility]. [facility] with some nausea and vomiting, also had a cough. He has also been exposed to a Covid-19 patient at the penitentiary and his mental status has declined over the last day or so. He is non-verbal and has been for quite some time due to a previous stroke. He does have right-sided bruises. He was sent to the Emergency Room where his initial vital signs showed a temperature of 102.5 with heart rate of 105. Blood pressure was 147/91, respiratory rate 20, oxygen saturation 97% on 2 liters nasal cannula. His lab studies showed a WBC of 6,800 with hemoglobin of 13.2, hematocrit 38.8. He did have a left shift on his differential. D-dimer was less than 131. Sodium 137, potassium 3.4, chloride 100, carbon dioxide 27, BUN 18, creatinine 0.9, lactic acid 1.6, calcium 8.1, total bilirubin 1.1. C-reactive protein 6.9 with alkaline phosphatase of 0.27. He had a urinary tract infection on his urinalysis with 40 of urine ketones with trace of intact urine blood, positive urine nitrites, 4 of urobilinogen, trace of urine leukocyte esterase, 10 to 20 urine WBCs and 4+ urine bacteria. His blood cultures were drawn as well as a urine culture was ordered. Influenza type A and B per PCR were both negative. He was tested for Covid-19. Chest x- ray showed small patchy airspace infiltrates in the right mid and lower lung concerning for infection, viral infection was not excluded. Initially, he was given Levaquin in the Emergency Room as well as some fluids and azithromycin was added. He also received some Decadron and some Zofran and I was called for hospital admission. PAST MEDICAL HISTORY: 1. Atrial fibrillation. 2. Hypertension. 3. Hyperlipidemia. 4. CVA. PAST SURGICAL HISTORY: 1. Hernia repair. 2. Colon resection. 3. Ankle surgery. OUTPATIENT MEDICATIONS: Per the EMR and awaiting verification. ALLERGIES: PENICILLIN SOCIAL HISTORY: He lives at [facility]. He quit smoking many years ago. There is no history of ETOH or illicit drug use. REVIEW OF SYSTEMS: Unable to obtain due to patient's condition. PHYSICAL EXAMINATION: VITAL SIGNS: Temperature 100.7. Heart rate 111, blood pressure 140/90, respiratory rate 20. Oxygen saturation 91% on 2 liters nasal cannula. GENERAL: This is an 80 year-old male patient who is lying in his hospital bed. He is nonverbal. He is no acute distress. HEENT: Atraumatic and normocephalic. Oropharynx is clear. NECK: Supple without mass. CHEST: Diminished throughout with a few scattered rhonchi. Chest has equal rise and fall of the chest with inspiration and expiration. CARDIOVASCULAR: Tachycardiac rate, regular to slightly irregular rhythm. ABDOMEN: Soft, nontender, nondistended. Bowel sounds are positive. EXTREMITIES: He has right-sided hemiparesis. He does move his left side spontaneously. Bilateral pedal pulses are palpable at +2. There is no cyanosis or edema of the lower extremities. SKIN: Warm and dry. NEUROLOGIC: He opens his eye but he is nonverbal. Labs and films are as per the history of present illness. ASSESSMENT: 1. Sepsis related to right-sided pneumonia as well as a urinary tract infection. Admitting temperature was 102.5 with heart rate of 105. 2. Right-sided pneumonia most likely healthcare acquired as he lives in a long-term care center. 3. Urinary tract infection. 4. High risk for Covid-19. 5. History of strokes with residual right-sided hemiparesis. 6. Atrial fibrillation on Eliquis. 7. Hypertension. PLAN: The patient has been admitted to the hospital. I will give him fluids overnight and continue on azithromycin and Rocephin. He will have aggressive pulmonary hygiene. We will watch his cultures as they become available. I will also do daily D-dimer, CRP and ferritins. I have continued his Eliquis. I will also monitor his Covid-19, he will be in isolation until those results are returned. He will have a PPI for ulcer prophylaxis. I have not started him on any steroids yet as he received a dose in the Emergency Room and will reevaluate that tomorrow. We will continue to monitor him closely and follow as needed. #[id number] [facility]
[2020-05-03] MEDS ORDERED: ACETAMINOPHEN 500 MG TAB PO ONE (21:12)
[2020-05-03] MEDS ORDERED: ALBUTEROL SULFATE 2.5 MG/3 ML VIAL NEB PRN (21:53)
[2020-05-03] MEDS ORDERED: SODIUM CHLORIDE 0.9% (FLUSH) 10 ML SYG IV PRN (21:53)
[2020-05-03] MEDS ORDERED: KCL 20MEQ/0.45% NS 1,000 ML IVS ONE (21:59)
[2020-05-03] MEDS ORDERED: diltiaZEM HCL TAB 30 MG TAB ONE (22:33)
[2020-05-03] MEDS: IV SET AND CAP CHANGE INJ INJ SCH (22:37)
[2020-05-03] MEDS: APIXABAN 5 MG TAB PO SCH (22:56)
[2020-05-04] MEDS: ACETAMINOPHEN 325 MG TAB PO PRN ×3 (05:17→23:56)
[2020-05-04] MEDS ORDERED: NON-FORMULARY MEDICATION 1 EA MIS (Diltiazem Hcl [Diltiazem Hcl] 60 MG) PO SCH (06:00)
--- NOTE | 2020-05-04 07:11 | RAD ---
EXAM DESCRIPTION: X-RAY CHEST,1 VIEW CLINICAL HISTORY: 80 years Male, Pneumonia COMPARISON: 05/03/2020 TECHNIQUE: Single AP chest radiograph. FINDINGS: Decreased right mid lung opacity. Stable right lower lung opacity. No new opacities detected. No pneumothorax or pleural effusion. Stable cardiomediastinal contour. Normal osseous structures. IMPRESSION: 1. Persistent airspace disease, slightly decreased compared to the previous exam. Electronically signed by: Sathish Michel MD 05/04/2020 7:10 AM CDT
[2020-05-04] MEDS ORDERED: SODIUM CHL 0.9% 50ML MIN-BAG+ 50 ML IVPB ONE (08:18)
[2020-05-04] MEDS ORDERED: LACTOBACILLUS 1 TAB ONE (08:18)
[2020-05-04] MEDS ORDERED: cefTRIAXone SODIUM 1 GM VIAL ONE (08:18)
[2020-05-04] MEDS ORDERED: diltiaZEM HCL TAB 30 MG TAB ONE (08:19)
[2020-05-04] MEDS ORDERED: SILODOSIN 4 MG PO SCH (09:00)
[2020-05-04] MEDS: APIXABAN 5 MG TAB PO SCH ×2 (09:14→21:43)
[2020-05-04] MEDS: diltiaZEM HCL TAB 30 MG TAB PO SCH ×3 (09:14→23:56)
[2020-05-04] MEDS: CETIRIZINE HCL 10 MG TAB PO SCH (09:14)
[2020-05-04] MEDS: LACTOBACILLUS 1 TAB PO SCH ×2 (09:15→21:43)
[2020-05-04] MEDS: FLUDROCORTISONE ACETATE PO SCH (09:15)
[2020-05-04] MEDS: cefTRIAXone SODIUM 1 GM in SODIUM CHL 0.9% 50ML MIN-BAG+ 50 ML IVPB SCH (09:15)
[2020-05-04] MEDS: SODIUM CHLORIDE 0.9% (FLUSH) 10 ML SYG IV SCH ×2 (09:15→21:44)
[2020-05-04] MEDS ORDERED: DEXAMETHASONE INJ 10 MG/ML VIAL ONE (09:16)
[2020-05-04] MEDS: DEXAMETHASONE INJ 4 MG/ML VIAL IV SCH (09:19)
[2020-05-04] MEDS: AZITHROMYCIN IV 500 MG in SODIUM CHLORIDE 0.9% 250ML 250 ML IVPB SCH (09:49)
[2020-05-04] MEDS: ALBUTEROL SULFATE 2.5 MG/3 ML VIAL NEB SCH ×4 (10:01→20:00)
[2020-05-04] MEDS: NON-FORMULARY MEDICATION 1 EA MIS (Diltiazem Hcl [Diltiazem Hcl] 60 MG) PO SCH ×2 (10:25)
[2020-05-04] MEDS: SILODOSIN 8 MG PO SCH (12:01)
[2020-05-04] MEDS ORDERED: HALOPERIDOL LACTATE INJ 5 MG/ML VIAL ONE (14:14)
[2020-05-04] MEDS ORDERED: HALOPERIDOL LACTATE INJ 5 MG/ML VIAL IM ONE (14:24)
[2020-05-04] MEDS: ONDANSETRON INJ 4 MG/2 ML VIAL IV PRN (14:26)
[2020-05-05] MEDS: ONDANSETRON INJ 4 MG/2 ML VIAL IV PRN (04:00)
[2020-05-05] MEDS: HALOPERIDOL LACTATE INJ 5 MG/ML VIAL IM PRN ×2 (04:25→08:51)
--- NOTE | 2020-05-05 07:33 | RAD ---
EXAM: XR Chest, 1 View CLINICAL HISTORY: pna TECHNIQUE: Frontal view of the chest. COMPARISON: No relevant prior studies available. FINDINGS: Lungs: Mild interstitial scarring stable. No consolidation. Pleural space: Unremarkable. No pneumothorax. Heart: Stable cardiac enlargement. Mediastinum: Unremarkable. Bones/joints: Unremarkable. IMPRESSION: Chronic changes as above. No acute disease. Electronically signed by: Bel Gaona MD 05/05/2020 7:31 AM CDT
--- NOTE | 2020-05-05 08:22 | PN ---
SUPERVISING PHYSICIAN: Ruben Almeida MD DATE: 05/04/20 SUBJECTIVE: The patient is lying in bed sleeping. Earlier today, he had some abdominal pain with no complaints of nausea or vomiting. He denies chest pain or shortness of breath. OBJECTIVE: VITAL SIGNS: Temperature 97.8, heart rate 53, blood pressure 121/80, respiratory rate 21, O2 saturation 96% on 2 liters nasal cannula. RESPIRATORY: Somewhat diminished at the bases. A few scattered rhonchi. CARDIAC: Regular rate and rhythm. GASTROINTESTINAL: Abdomen is soft, nondistended, nontender. Bowel sounds are positive. NEUROLOGIC: He opens his eyes. He is nonverbal, but he can answer yes/no questions appropriately. LABORATORY: WBCs 4, hemoglobin 13.6, hematocrit 40. He does have a left shift on his differential. D-dimer is less than 131. Electrolytes are basically within normal limits. His total bilirubin is 1.1, C-reactive protein is 9.1, ferritin 184. Preliminary blood cultures show no growth after 24 hours. Urine culture is pending. Chest x-ray shows persistent airspace disease, slightly decrease compared to the previous exams. All other labs and films have been reviewed via the EMR. ASSESSMENT: 1. Sepsis related to right-sided pneumonia as well as a urinary tract infection. Admitting temperature was 102.5 with heart rate of 105. 2. Right-sided pneumonia most likely healthcare acquired as he lives in a long- term care center. 3. Urinary tract infection. 4. High risk for COVID-19. 5. History of strokes with residual right-sided hemiparesis. 6. Atrial fibrillation on Eliquis. 7. Hypertension. PLAN: We will continue present supportive care. Hopefully his COVID testing will be resulted tomorrow. I did put him on Decadron 6 mg daily and his Eliquis should be sufficient for his DVT prophylaxis. I ordered routine lab as well as D-dimer, CRP and ferritin for tomorrow plus a chest x-ray. I encouraged good pulmonary hygiene. We will continue to monitor the patient closely and follow as needed. #[id number] [facility]
[2020-05-05] MEDS ORDERED: DEXAMETHASONE INJ 10 MG/ML VIAL ONE (08:46)
[2020-05-05] MEDS: cefTRIAXone SODIUM 1 GM in SODIUM CHL 0.9% 50ML MIN-BAG+ 50 ML IVPB SCH (08:49)
[2020-05-05] MEDS: diltiaZEM HCL TAB 30 MG TAB PO SCH ×3 (08:49→17:23)
[2020-05-05] MEDS: APIXABAN 5 MG TAB PO SCH ×2 (08:49→22:12)
[2020-05-05] MEDS: CETIRIZINE HCL 10 MG TAB PO SCH (08:49)
[2020-05-05] MEDS: DEXAMETHASONE INJ 4 MG/ML VIAL IV SCH (08:50)
[2020-05-05] MEDS: SODIUM CHLORIDE 0.9% (FLUSH) 10 ML SYG IV SCH ×2 (08:50→22:11)
[2020-05-05] MEDS: LACTOBACILLUS 1 TAB PO SCH ×2 (08:50→22:12)
[2020-05-05] MEDS: ACETAMINOPHEN 325 MG TAB PO PRN (08:51)
[2020-05-05] MEDS: ALBUTEROL SULFATE 2.5 MG/3 ML VIAL NEB SCH ×2 (08:52→12:50)
[2020-05-05] MEDS: DEXAMETHASONE INJ 10 MG/ML VIAL IV SCH (09:09)
[2020-05-05] MEDS: SILODOSIN 8 MG PO SCH (09:09)
[2020-05-05] MEDS: FLUDROCORTISONE ACETATE PO SCH (09:09)
[2020-05-05] MEDS ORDERED: diltiaZEM HCL TAB 30 MG TAB PO ONE (10:04)
[2020-05-05] MEDS: AZITHROMYCIN IV 500 MG in SODIUM CHLORIDE 0.9% 250ML 250 ML IVPB SCH (10:09)
[2020-05-05] MEDS ORDERED: diltiaZEM HCL TAB 30 MG TAB ONE (10:15)
--- NOTE | 2020-05-05 12:25 | CT ---
EXAM DESCRIPTION: Abdomen/Pelvis w/wo Contrast CLINICAL HISTORY: 80 years Male, abd pain COMPARISON: CT abdomen and pelvis 12/31/2016. TECHNIQUE: CT of the abdomen and pelvis acquired without and with IV contrast material. Coronal and sagittal reformations provided. This exam was performed according to our departmental dose-optimization program, which includes automated exposure control, adjustment of the mA and/or kV according to patient size and/or use of iterative reconstruction technique. FINDINGS: Lung bases: Small bilateral pleural effusions with adjacent right greater than left consolidation or atelectasis. Enlarged heart. Solid Organs: Distended gallbladder measuring up to 11.8 cm in maximal length but with no internal gallstones definitively visualized. No biliary ductal dilatation. Unremarkable spleen, pancreas, adrenal glands. Bilateral renal cysts measuring up to 10.2 cm on the right. GI tract: Decompressed stomach. No small bowel obstruction. Moderate amount stool within the rectal vault/distal colon. Moderate stool within the ascending and transverse colon. Normal appendix. Vascular: Moderate atherosclerosis. Musculoskeletal and soft tissues: No acute fracture or aggressive appearing osseous lesion. Stable sclerotic focus in the right femoral neck. Large right and moderate left fat-containing inguinal hernias. Urinary bladder: Decompressed with Avila catheter in place. Small foci of air within the nondependent urinary bladder probably due to catheterization. Prostate: Normal sized traversed by a Avila catheter. Other: None. IMPRESSION: 1. Distended gallbladder without biliary ductal dilatation. Findings may relate to cholecystitis. Dedicated ultrasound of the gallbladder can further evaluate. HIDA scan may be of benefit if indicated. 2. Moderate amount stool within the ascending and transverse colon, and distal sigmoid colon/rectal vault. 3. Small bilateral pleural effusions with adjacent atelectasis or consolidation such as pneumonia versus aspiration. 4. Avila catheter in place. 5. Large right and moderate left fat-containing inguinal hernias. Electronically signed by: Jean Braun MD 05/05/2020 12:24 PM CDT
[2020-05-05] MEDS ORDERED: LEVALBUTEROL NEBS 1.25 MG/3 ML VIAL NEB ONE (12:30)
[2020-05-05] MEDS: LEVALBUTEROL NEBS 1.25 MG/3 ML VIAL NEB PRN (12:50)
[2020-05-05] MEDS ORDERED: HALOPERIDOL LACTATE INJ 5 MG/ML VIAL IM PRN (14:33)
[2020-05-05] MEDS: MAGNESIUM HYDROXIDE 30 ML UD PO SCH ×2 (14:57→18:48)
--- NOTE | 2020-05-05 15:03 | PN ---
SUPERVISING PHYSICIAN: Ruben Almeida MD DATE: 05/05/20 SUBJECTIVE: The patient is lying in bed asleep. He is mostly aphasic, but can answer some simple yes/no questions. It had been reported earlier that he had abdominal pain overnight as well as yesterday. He continues to complain of some mild pain although at times it does get quite worse. He denies any nausea or vomiting. I did explain to the patient that his COVID-19 testing came back and was positive. OBJECTIVE: VITAL SIGNS: Temperature 98, heart rate 98, blood pressure 118/79, respiratory rate 19, O2 saturation 96% on 2.5 liters nasal cannula. RESPIRATORY: Somewhat diminished at the bases, but otherwise clear to auscultation. CARDIAC: Regular rate and rhythm. At times, he is slightly tachycardic. He has actually gotten up to 134. GASTROINTESTINAL: Abdomen is soft. He is diffusely tender, especially in the epigastric and right upper quadrant areas. There is no rebound tenderness or guarding. NEUROLOGIC: He is awake and alert. He is mostly aphasic, but answers simple yes/no questions. LABORATORY: D-dimer 131. Electrolytes are basically within normal limits. C- reactive protein is down to 6.3. Preliminary blood cultures show no growth after 24 hours. Urine culture is pending. Chest x-ray shows mild interstitial scarring of the lungs with no consolidations. Abdomen and pelvis CT shows 1) Distended gallbladder without biliary ductal dilatation. Findings may relate to cholecystitis. Dedicated ultrasound of the gallbladder can further evaluate. HIDA scan may be of benefit if indicated. 2) Moderate amount of stool within the ascending and transverse colon and distal sigmoid colorectal vault. 3) Small bilateral pleural effusions with adjacent atelectasis or consolidation such as pneumonia versus aspiration. 4) Avila catheter in place. 5) Large right and moderate left fat containing inguinal hernias. All other labs and films have been reviewed via the EMR. ASSESSMENT: 1. Sepsis related to right-sided pneumonia as well as a urinary tract infection. Admitting temperature was 102.5 with heart rate of 105. 2. Right-sided pneumonia most likely healthcare acquired as he lives in a long- term care center. 3. Urinary tract infection. 4. COVID-19 positive. 5. Abdominal pain with CT evidence of cholecystitis. 6. Constipation. 7. History of strokes with residual right-sided hemiparesis. 8. Atrial fibrillation on Eliquis. 9. Hypertension. PLAN: We will continue present supportive care and continue him in isolation for COVID-19. We will continue his Decadron, Eliquis, azithromycin and Rocephin. I have consulted Dr. Jara and discussed his case with him. We will order an ultrasound of the gallbladder tomorrow morning. At this time, I cannot order a HIDA scan because of his COVID-19 status and we will reevaluate the need for that after the results of his ultrasound come back. I have also ordered him 2 doses of Milk of Magnesia for the constipation. I have ordered lab for in the morning as well as chest x-ray. We will continue to monitor the patient closely and follow as needed. #[id number] [facility]
[2020-05-05] MEDS: LEVALBUTEROL NEBS 1.25 MG/3 ML VIAL NEB SCH ×2 (16:00→20:00)
[2020-05-06] MEDS: diltiaZEM HCL TAB 30 MG TAB PO SCH ×4 (00:25→17:13)
--- NOTE | 2020-05-06 07:37 | RAD ---
CHEST, ONE VIEW XR CLINICAL HISTORY: COVID19, pneumonia COMPARISON: 05/05/2020 TECHNIQUE: AP Chest. FINDINGS: Cardiac size is upper normal. Mild aortic atherosclerosis. Mild pulmonary vascular congestion. Increasing hazy bilateral scattered airspace opacities. No pneumothorax or pleural fluid. Unremarkable soft tissues and bones. IMPRESSION: 1. Mild scattered bilateral pulmonary infiltrates. Mild pulmonary vascular congestion. Electronically signed by: Mary Anne Ye DO 05/06/2020 7:36 AM CDT
[2020-05-06] MEDS: LEVALBUTEROL NEBS 1.25 MG/3 ML VIAL NEB SCH ×4 (08:15→20:00)
--- NOTE | 2020-05-06 08:15 | US ---
EXAM DESCRIPTION: Gall Bladder CLINICAL HISTORY: cholecystitis COMPARISON: CT abdomen May 05, 2020 TECHNIQUE: Real-time sonographic images of the right upper quadrant of the abdomen are obtained. FINDINGS: Pancreas is note well visualized because of overlying bowel gas. The right lobe of the liver measures 12.2cm. Left lobe of the liver is not well visualized secondary to overlying bowel gas The liver is diffusely homogeneous and normal in echogenicity. No focal hepatic mass is seen. The gallbladder is distended and contains hypoechoic sludge. Several foci of increased echogenicity with posterior acoustic shadowing are seen.. No gallbladder wall thickening or pericholecystic fluid is seen. The common bile duct measures 5 mm in greatest diameter. The right kidney measures 12 cm. Large anechoic cyst of the upper pole right kidney measures 9.8 x 1.2 x 10.1 cm with increased through transmission.. Visualized IVC and abdominal aorta are within normal limits. IMPRESSION: Distended gallbladder with cholelithiasis and gallbladder sludge. No ultrasound evidence of acute cholecystitis or biliary tract obstruction. Electronically signed by: Reed Cook MD 05/06/2020 8:13 AM CDT
[2020-05-06] MEDS: cefTRIAXone SODIUM 1 GM in SODIUM CHL 0.9% 50ML MIN-BAG+ 50 ML IVPB SCH (08:53)
[2020-05-06] MEDS: APIXABAN 5 MG TAB PO SCH ×2 (09:37→20:09)
[2020-05-06] MEDS: DEXAMETHASONE INJ 10 MG/ML VIAL IV SCH (09:37)
[2020-05-06] MEDS: SODIUM CHLORIDE 0.9% (FLUSH) 10 ML SYG IV SCH ×2 (10:01→20:10)
[2020-05-06] MEDS: FLUDROCORTISONE ACETATE PO SCH (10:01)
[2020-05-06] MEDS: LACTOBACILLUS 1 TAB PO SCH ×2 (10:01→20:09)
[2020-05-06] MEDS: CETIRIZINE HCL 10 MG TAB PO SCH (10:02)
[2020-05-06] MEDS: SILODOSIN 8 MG PO SCH (10:02)
[2020-05-06] MEDS: AZITHROMYCIN IV 500 MG in SODIUM CHLORIDE 0.9% 250ML 250 ML IVPB SCH (10:03)
[2020-05-06] MEDS: HALOPERIDOL LACTATE INJ 5 MG/ML VIAL IM PRN (10:20)
[2020-05-06] MEDS: ACETAMINOPHEN 325 MG TAB PO PRN (10:29)
[2020-05-06] MEDS ORDERED: VANCOMYCIN PER PHARMACY IVPB SCH (12:00)
[2020-05-06] MEDS: MEROPENEM 1 GM in SODIUM CHL 0.9% 50ML MIN-BAG+ 50 ML IVPB SCH ×2 (12:30→20:09)
[2020-05-06] MEDS: VANCOMYCIN HCL INJ 1,000 MG, VANCOMYCIN HCL INJ 250 MG in SODIUM CHLORIDE 0.9% 250ML 25... IVPB SCH (13:02)
--- NOTE | 2020-05-06 21:26 | PN ---
SUPERVISING PHYSICIAN: Hunter Almeida M.D. DATE: 05/06/20 SUBJECTIVE: The patient appears to be resting comfortably. He denied any nausea or vomiting. He did run a fever this morning. T max was 102.8 but he responded to treatment. Dr. Jara reviewed the patient's records in consultation. I am not sure as of yet that he has actually seen the patient. The patient is aphasic. OBJECTIVE: VITAL SIGNS: T max 102.8, pulse 148 while having a fever. Once the fever broke, temperature was down, pulse 84, blood pressure 144/81, respirations 22, satting 94% on 2 liters nasal cannula. GENERAL: The patient is resting comfortably. He does not appear to be in any distress. He is alert. He will open his eyes to verbal stimulus. He just answers yes or no questions. CHEST: Lung sounds show no obvious wheezing or rales, just remains diminished towards the bases. HEART: Regular rate and rhythm, showing to be tachycardic on the monitor at time of fever. ABDOMEN: Soft. Still remains a little bit tender in the epigastric region. No rebound tenderness. No peritoneal signs. He is alert and awake, and is again aphasic but answers yes or no questions. LABORATORY: White count is 8,500, hemoglobin 13.2, hematocrit 38.9, platelet count 161,000. Differential does continue to show a left shift. Electrolytes are showing to be within normal limits. Creatinine is at 1.0, C reactive protein is again showing elevation from 6.3 yesterday to 12.3. Calcium was at 8.2. D-dimer has been showing to be less than 131. Liver functions remain within normal limits. MICROBIOLOGY: Urine culture preliminary shows a gram negative chirag. 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 That culture and sensitivity is still pending. RADIOLOGY: Gallbladder ultrasound this morning per radiology interpretation shows a distended gallbladder with cholelithiasis and gallbladder sludge but no evidence of acute cholecystitis or biliary tract obstruction. Chest x-ray shows mild scattered bilateral pulmonary infiltrates with mild pulmonary vascular congestion. ASSESSMENT: 1. 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 The patient continues to run a fever. 2. Right-sided pneumonia, healthcare acquired. 3. Urinary tract infection with a gram negative chirag. Preliminary culture and sensitivity pending. 4. COVID-19 positive. 5. Cholelithiasis without any ultrasound evidence of acute cholecystitis with Dr. Jara consulting. 6. Constipation, chronic. 7. History of strokes with residual right-sided hemiparesis and aphasia. 8. Atrial fibrillation on Eliquis showing controlled ventricular rate. 9. Hypertension. PLAN: Given that he has a history of multi-drug resistant organisms, including Escherichia coli as well as VRE and has a healthcare acquired pneumonia, we are going to go ahead and start him on Vancomycin as well as some Meropenem given his C reactive protein did elevate again today and he continues to run a low- grade fever. His blood cultures right now are remaining negative. Will still follow those. Dr. Jara has reviewed his case. I have not seen his consultation yet. Will continue to provide supportive care for both underlying pneumonia and the urinary tract infection with cultures results. He does remain on Decadron and again azithromycin now covered with Meropenem and Vancomycin. He did have a fever that resulted in some tachy rhythms but as soon as his fever resolved he went back to a controlled ventricular rate. Will continue to monitor that closely. He also remains on Eliquis. Will plan to follow his labs per protocol. Until we can transition to outpatient management will continue to monitor and treat as needed. #[id number] [facility]
[2020-05-06] MEDS: IV SET AND CAP CHANGE INJ INJ SCH (23:20)
[2020-05-07] MEDS: diltiaZEM HCL TAB 30 MG TAB PO SCH ×4 (00:14→17:34)
[2020-05-07] MEDS: VANCOMYCIN HCL INJ 1,000 MG, VANCOMYCIN HCL INJ 250 MG in SODIUM CHLORIDE 0.9% 250ML 25... IVPB SCH ×2 (00:43→14:59)
[2020-05-07] MEDS: MEROPENEM 1 GM in SODIUM CHL 0.9% 50ML MIN-BAG+ 50 ML IVPB SCH ×3 (03:37→19:38)
[2020-05-07] MEDS: LEVALBUTEROL NEBS 1.25 MG/3 ML VIAL NEB SCH ×4 (08:00→20:00)
[2020-05-07] MEDS: CETIRIZINE HCL 10 MG TAB PO SCH (10:11)
[2020-05-07] MEDS: APIXABAN 5 MG TAB PO SCH ×2 (10:11→21:27)
[2020-05-07] MEDS: FLUDROCORTISONE ACETATE PO SCH (10:12)
[2020-05-07] MEDS: DEXAMETHASONE INJ 10 MG/ML VIAL IV SCH (10:12)
[2020-05-07] MEDS: SODIUM CHLORIDE 0.9% (FLUSH) 10 ML SYG IV SCH ×2 (10:13→21:28)
[2020-05-07] MEDS: SILODOSIN 8 MG PO SCH (10:13)
[2020-05-07] MEDS: AZITHROMYCIN IV 500 MG in SODIUM CHLORIDE 0.9% 250ML 250 ML IVPB SCH (10:14)
[2020-05-07] MEDS: LACTOBACILLUS 1 TAB PO SCH ×2 (10:14→21:28)
[2020-05-07] MEDS: ACETAMINOPHEN 325 MG TAB PO PRN (14:08)
--- NOTE | 2020-05-07 20:28 | PN ---
SUPERVISING PHYSICIAN: Hunter Almeida M.D. DATE: 05/07/20 SUBJECTIVE: The patient is much more alert today. He has not been febrile now for over 12 hours. He has had no nausea or vomiting. He is much more verbal today as far as being able to answer yes or no questions compared to yesterday. OBJECTIVE: VITAL SIGNS: T max temperature was 98.3, pulse 98, blood pressure 134/79, respirations 20. Still shows some good saturations at 88% on 2 liters nasal cannula. With breathing treatments and encouragement is has gone up to 98% at 3 liters nasal cannula and maintaining 92% on 2 liters. GENERAL: The patient is alert. He is very verbal only answering yes or no questions. They are just attempting to keep the patient's nurses' attention. Does not appear to be in any pain. CHEST: Much more clear today, just diminished towards the bases. No obvious rales or rhonchi. HEART: Regular rate and rhythm. ABDOMEN: Soft, non-tender to palpation. Positive bowel sounds. EXTREMITIES: Without any edema. LABORATORY STUDIES: CBC is showing to be fairly stable with a white count of 9,400, hemoglobin 13.1, hematocrit 39.3, platelet count was at 137,000. Differential continues to show a left shift. Chemistries show normal electrolytes. BUN is 29, creatinine is 5, calcium is down a little bit to 7.9 but his C reactive protein is up today at 13.1 compared to yesterday at 12.3. Coagulation studies: D-dimer still remains less than 131. MICROBIOLOGY: Urine culture is still pending, did now gram negative chirag. Blood cultures remains negative after 3 days. RADIOLOGY: No additional radiographic studies today. ASSESSMENT: 1. 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 2. Right-sided pneumonia, healthcare acquired, on Vancomycin and Meropenem. 3. Urinary tract infection with a gram negative chirag with culture and sensitivity pending. 4. COVID-19 pneumonia. 5. Cholelithiasis without any evidence of acute cholecystitis on ultrasound being followed by Dr. Jara. 6. Chronic constipation. 7. 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 8. Atrial fibrillation on Eliquis, continues to have controlled ventricular rate. 9. Hypertension, controlled. PLAN: Will continue with current plan of care at this point with Meropenem and Vancomycin given that he has a history of multi-drug resistant organisms and previous VRE. Will continue to follow his blood cultures. Even though his C reactive protein is a little elevated, he seems to be fairly stable at this point. Will continue treatment of pneumonia and urinary tract infection and target antibiotic therapy as able once reports are available. His heart rate continues to be controlled since his fever has been much less. Will continue to follow his labs. Until we can transition back to [facility] will continue to monitor and treat as needed. #[id number] [facility]
[2020-05-08] MEDS: VANCOMYCIN HCL INJ 1,000 MG, VANCOMYCIN HCL INJ 250 MG in SODIUM CHLORIDE 0.9% 250ML 25... IVPB SCH ×2 (00:31→12:50)
[2020-05-08] MEDS: diltiaZEM HCL TAB 30 MG TAB PO SCH ×4 (00:31→17:38)
[2020-05-08] MEDS: MEROPENEM 1 GM in SODIUM CHL 0.9% 50ML MIN-BAG+ 50 ML IVPB SCH ×3 (04:16→19:34)
[2020-05-08] MEDS: LEVALBUTEROL NEBS 1.25 MG/3 ML VIAL NEB SCH ×4 (08:30→20:05)
[2020-05-08] MEDS: AZITHROMYCIN IV 500 MG in SODIUM CHLORIDE 0.9% 250ML 250 ML IVPB SCH (09:32)
[2020-05-08] MEDS: FLUDROCORTISONE ACETATE PO SCH (09:33)
[2020-05-08] MEDS: SILODOSIN 8 MG PO SCH (09:33)
[2020-05-08] MEDS: APIXABAN 5 MG TAB PO SCH ×2 (09:34→20:30)
[2020-05-08] MEDS: CETIRIZINE HCL 10 MG TAB PO SCH (09:34)
[2020-05-08] MEDS: SODIUM CHLORIDE 0.9% (FLUSH) 10 ML SYG IV SCH ×2 (09:34→20:30)
[2020-05-08] MEDS: LACTOBACILLUS 1 TAB PO SCH ×2 (09:34→20:30)
[2020-05-08] MEDS: DEXAMETHASONE INJ 10 MG/ML VIAL IV SCH (09:35)
[2020-05-08] MEDS: HALOPERIDOL LACTATE INJ 5 MG/ML VIAL IM PRN (14:42)
--- NOTE | 2020-05-08 14:43 | PN ---
SUPERVISING PHYSICIAN: Hunter Almeida M.D. DATE: 05/08/20 SUBJECTIVE: The patient is lying in bed. He is somewhat more lethargic than yesterday. He does open his eyes and answers yes/no questions. He has had no abdominal pain, nausea or vomiting. I did call his daughter to discuss his care. Today, she made him a limited code. OBJECTIVE: VITAL SIGNS: Temperature 98, heart rate 102, blood pressure 145/93, respiratory rate 18, O2 saturation 98% on a nonrebreather. RESPIRATORY: Diminished breath sounds throughout. He does have somewhat shallow breathing. HEART: Regular rate and rhythm. At times he is slightly tachycardic. ABDOMEN: Soft, nondistended, non-tender. Bowel sounds are positive. EXTREMITIES: No clubbing, cyanosis or edema. LABORATORY: His pCO2 is 32, pO2 is 40, bicarb is 28, O2 saturation is 80%. All other labs and films have been reviewed via the EMR. ASSESSMENT: 1. 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 2. Right-sided pneumonia, healthcare acquired, on Vancomycin and Meropenem. 3. Urinary tract infection with a gram negative chirag with culture and sensitivity pending. 4. COVID-19 pneumonia. 5. Cholelithiasis without any evidence of acute cholecystitis on ultrasound being followed by Dr. Jara. 6. Chronic constipation. 7. 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 8. Atrial fibrillation on Eliquis, continues to have controlled ventricular rate. 9. Hypertension, controlled. PLAN: We will continue present supportive care. I did speak to his daughter and she got to see her dad today for a short amount of time. She did change him to a limited code where all we will do is fluid challenges, cardioversion, bag/mask ventilation and some cardiac emergency drugs. At this point, Dr. Jara said that he is not a surgical candidate for his cholecystitis. I have ordered labs and chest x-ray for in the morning. Hopefully if we can stabilize his labs, he can be discharged back to [facility] in the next 2 or 3 days. Will continue to monitor closely and follow as needed. #[id number] [facility]
[2020-05-08] MEDS: ACETAMINOPHEN 325 MG TAB PO PRN (19:30)
[2020-05-09] MEDS: VANCOMYCIN HCL INJ 1,000 MG, VANCOMYCIN HCL INJ 250 MG in SODIUM CHLORIDE 0.9% 250ML 25... IVPB SCH ×2 (00:59→16:33)
[2020-05-09] MEDS: diltiaZEM HCL TAB 30 MG TAB PO SCH ×4 (01:01→23:49)
[2020-05-09] MEDS: MEROPENEM 1 GM in SODIUM CHL 0.9% 50ML MIN-BAG+ 50 ML IVPB SCH ×2 (04:31→11:50)
[2020-05-09] MEDS: HALOPERIDOL LACTATE INJ 5 MG/ML VIAL IM PRN (06:49)
[2020-05-09] MEDS: FLUDROCORTISONE ACETATE PO SCH (07:57)
[2020-05-09] MEDS: SILODOSIN 8 MG PO SCH (07:57)
[2020-05-09] MEDS: APIXABAN 5 MG TAB PO SCH ×2 (07:58→21:24)
[2020-05-09] MEDS: DEXAMETHASONE INJ 10 MG/ML VIAL IV SCH (07:58)
[2020-05-09] MEDS: CETIRIZINE HCL 10 MG TAB PO SCH (07:58)
[2020-05-09] MEDS: LACTOBACILLUS 1 TAB PO SCH ×2 (07:58→21:24)
[2020-05-09] MEDS: ACETAMINOPHEN 325 MG TAB PO PRN (08:08)
[2020-05-09] MEDS ORDERED: IBUPROFEN 400 MG TAB ONE (08:12)
[2020-05-09] MEDS: IBUPROFEN 200 MG TAB PO PRN (08:13)
[2020-05-09] MEDS: LEVALBUTEROL NEBS 1.25 MG/3 ML VIAL NEB SCH ×4 (08:22→20:30)
[2020-05-09] MEDS: AZITHROMYCIN IV 500 MG in SODIUM CHLORIDE 0.9% 250ML 250 ML IVPB SCH (11:50)
[2020-05-09] MEDS: SODIUM CHLORIDE 0.9% (FLUSH) 10 ML SYG IV SCH ×2 (11:51→21:26)
--- NOTE | 2020-05-09 11:52 | RAD ---
EXAM: XR Chest, 1 View CLINICAL HISTORY: covid TECHNIQUE: Frontal view of the chest. COMPARISON: 05/06/2020. FINDINGS: Lungs: There is significant increase in diffuse interstitial thickening and development of bilateral airspace consolidation. Pleural space: Unremarkable. No pneumothorax. Heart: Stable prominent cardiac shadow. Mediastinum: Unremarkable. Bones/joints: Unremarkable. IMPRESSION: There is worsening appearance of the chest consistent with covid pneumonia. Electronically signed by: Bel Gaona MD 05/09/2020 11:51 AM CDT
[2020-05-09] MEDS ORDERED: SODIUM CHLORIDE 0.9% IVPB SCH (14:30)
[2020-05-09] MEDS ORDERED: MEROPENEM IVPB SCH (14:30)
[2020-05-09] MEDS ORDERED: MEROPENEM 500 MG VIAL IVPB ONE (16:21)
[2020-05-09] MEDS ORDERED: levoFLOXacin 500MG IV 100 ML IVPB ONE (19:17)
[2020-05-09] MEDS: levoFLOXacin 500MG IV 500 MG in PREMIX BAG 1 BAG IVPB SCH (19:25)
[2020-05-09] MEDS: IV SET AND CAP CHANGE INJ INJ SCH (21:26)
--- NOTE | 2020-05-09 21:37 | PN ---
SUPERVISING PHYSICIAN: Hunter Almeida M.D. DATE: 05/09/20 SUBJECTIVE: The patient is sitting up in bed. He is somewhat more alert today than yesterday. He is having some shortness of breath, but no abdominal pain. No nausea or vomiting. OBJECTIVE: VITAL SIGNS: Temperature 100.2 with a heart rate of 88. It has gone as high at 124. Blood pressure is 110/76, respiratory rate is 22 but it has been as high as 32. He has gone down to 75% on a nonrebreather. At this time, he is up to 93%. RESPIRATORY: Diminished breath sounds throughout with a few scattered rhonchi. CARDIAC: Regular rate and rhythm. At times, he is tachycardic. GASTROINTESTINAL: Abdomen is slightly firm but nondistended, non-tender. There is no tenderness to palpation. Bowel sounds are positive. NEUROLOGIC: He is awake and alert. He does answer yes/no questions appropriately, but mostly he is nonverbal. LABORATORY: WBCs are 9.8 with a hemoglobin of 12.7, hematocrit of 37.4. He does have a left shift on is differential. D-dimer is less than 131. His fibrinogen is 228. Electrolytes are basically within normal limits with the exception of his calcium is low at 7.9. BUN is 26, creatinine 0.81. Total bilirubin is 1.1. AST is 43, ALT is 21. C reactive protein has risen to 17.4. Preliminary blood cultures show no growth after 5 days. Urine culture shows Klebsiella pneumoniae and it is resistant to cephalosporins but sensitive to Levaquin. Chest x-ray shows worsening appearance of the chest consistent with COVID pneumonia. All other labs and films have been reviewed via the EMR. ASSESSMENT: 1. 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 2. Right-sided pneumonia, healthcare acquired, on Vancomycin and Meropenem. 3. Urinary tract infection with Klebsiella pneumoniae sensitive to Levaquin. 4. COVID-19 pneumonia. 5. Cholelithiasis without any evidence of acute cholecystitis on ultrasound being followed by Dr. Jara. 6. Chronic constipation. 7. 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 8. Atrial fibrillation on Eliquis, continues to have controlled ventricular rate. 9. Hypertension, controlled. PLAN: We will continue present supportive care. The patient's prognosis is very poor. He is not a surgical candidate at this time for his cholecystitis. I have discontinued his Meropenem and changed it to Levaquin. He is also on Vancomycin and azithromycin. I have also ordered some routine lab as well as COVID lab for in the morning. Will continue aggressive pulmonary hygiene and will continue to monitor him closely and follow as needed. #[id number] [facility]
[2020-05-10] MEDS: VANCOMYCIN HCL INJ 1,000 MG, VANCOMYCIN HCL INJ 250 MG in SODIUM CHLORIDE 0.9% 250ML 25... IVPB SCH (00:05)
--- NOTE | 2020-05-10 07:22 | RAD ---
EXAM DESCRIPTION: X-ray single view chest. CLINICAL HISTORY: 80 years Male, covid pna COMPARISON: 05/09/2020 and 05/06/2020 TECHNIQUE: Single portable x-ray view of the chest performed on 05/10/2020 at 6:48 AM FINDINGS: Again demonstrated are patchy interstitial and alveolar opacities bilaterally worse on the left most likely due to multifocal pneumonia. There is no evidence of a pneumothorax. The cardiac silhouette is normal in size and configuration. The mediastinal contours are normal. No acute osseous abnormality is identified. No focal soft tissue abnormalities are seen. Lines and tubes: None. IMPRESSION: Overall, no significant interval change when compared to the most recent study revealing patchy interstitial and alveolar opacities bilaterally, worse on the left most likely due to multifocal pneumonia. Electronically signed by: Aleena Steel DO 05/10/2020 7:20 AM CDT
[2020-05-10] MEDS: LEVALBUTEROL NEBS 1.25 MG/3 ML VIAL NEB SCH ×4 (08:00→19:40)
[2020-05-10] MEDS: CETIRIZINE HCL 10 MG TAB PO SCH (08:01)
[2020-05-10] MEDS: DEXAMETHASONE INJ 10 MG/ML VIAL IV SCH (08:01)
[2020-05-10] MEDS: APIXABAN 5 MG TAB PO SCH ×2 (08:01→20:44)
[2020-05-10] MEDS: SILODOSIN 8 MG PO SCH (08:05)
[2020-05-10] MEDS: FLUDROCORTISONE ACETATE PO SCH (08:05)
[2020-05-10] MEDS: LACTOBACILLUS 1 TAB PO SCH ×2 (08:08→20:44)
[2020-05-10] MEDS: SODIUM CHLORIDE 0.9% (FLUSH) 10 ML SYG IV SCH ×2 (08:09→20:44)
[2020-05-10] MEDS: AZITHROMYCIN IV 500 MG in SODIUM CHLORIDE 0.9% 250ML 250 ML IVPB SCH (09:53)
[2020-05-10] MEDS: diltiaZEM HCL TAB 30 MG TAB PO SCH ×2 (09:54→15:23)
[2020-05-10] MEDS: ACETAMINOPHEN 325 MG TAB PO PRN ×2 (12:00→22:50)
--- NOTE | 2020-05-10 13:21 | PN ---
SUPERVISING PHYSICIAN: Izaiah Ward MD DATE: 05/10/20 SUBJECTIVE: The patient is alert. He has chronic dementia. He is talking without making any sense, but apparently this is his baseline. OBJECTIVE: VITAL SIGNS: Blood pressure 137/88, heart rate 92, respiratory rate 16, temperature 97.4. He had a temperature of 103.2 yesterday morning. O2 saturation 96%, but he is still on a non-rebreather. GENERAL: Mr. Kamara is an 80-year-old male patient who is ill in appearance, but in no active distress currently. NEUROLOGIC: The patient is alert, but not oriented. LUNGS: Scattered rhonchi, no wheezing. CARDIOVASCULAR: Regular rate and rhythm. Normal S1, S2. ABDOMEN: Soft. Positive bowel sounds. No tenderness to palpation. GENITOURINARY: Deferred. EXTREMITIES: Lower extremities with no edema. LABORATORY: White count normal, hemoglobin normal. He still has a left shift with 93% neutrophils. D-dimer 168. Chemistry with BUN 30. Otherwise unremarkable. C-reactive protein is down to 16 from 17.4 yesterday. ASSESSMENT: 1. COVID-19 19 pneumonia. 2. Klebsiella pneumoniae urinary tract infection. 3. Cholelithiasis with no evidence of cholecystitis, being followed by Dr. Jara. 4. Chronic constipation. 5. History of strokes with residual right-sided hemiparesis and aphasia. 6. Atrial fibrillation on Eliquis. 7. Hypertension. PLAN: Still requiring a lot of oxygen at this point, but he is more alert than he was. He did have a fever of 103.2 yesterday, but no significant fever since that time. He was placed on Levaquin due to his urine culture. I will have to discontinue the azithromycin as azithromycin and Levaquin cannot be given simultaneously. I will discontinue the vancomycin as cultures have come back on the urine. We will continue the dexamethasone and anticoagulation. Prognosis still remains poor given his hypoxia, but he does seem to be a little bit better today. [facility][id number] [facility]
[2020-05-10] MEDS: IBUPROFEN 200 MG TAB PO PRN (15:22)
[2020-05-10] MEDS: HALOPERIDOL LACTATE INJ 5 MG/ML VIAL IM PRN (15:23)
[2020-05-10] MEDS: levoFLOXacin 500MG IV 500 MG in PREMIX BAG 1 BAG IVPB SCH (17:50)
[2020-05-11] MEDS: diltiaZEM HCL TAB 30 MG TAB PO SCH ×4 (00:15→15:55)
[2020-05-11] MEDS: HALOPERIDOL LACTATE INJ 5 MG/ML VIAL IM PRN ×2 (00:58→19:12)
[2020-05-11] MEDS: IBUPROFEN 200 MG TAB PO PRN (01:48)
[2020-05-11] MEDS: LEVALBUTEROL NEBS 1.25 MG/3 ML VIAL NEB PRN (01:50)
--- NOTE | 2020-05-11 08:16 | PN ---
DATE: 05/11/20 SUBJECTIVE: Mr. Kamara is sleeping comfortably in bed, arousable and able to awakened, apparently at his baseline dementia. OBJECTIVE: VITAL SIGNS: Blood pressure 113/70, pulse 71, temperature 97.6, O2 93% on non- rebreather at flow rate of 15. GENERAL: Mr. Kamara is an 80-year-old male patient who is ill in appearance, but in no active distress currently. NEUROLOGIC: The patient is alert, but not oriented. LUNGS: Scattered rhonchi, no wheezing. CARDIOVASCULAR: Regular rate and rhythm. Normal S1, S2. ABDOMEN: Soft. Positive bowel sounds. No tenderness to palpation. GENITOURINARY: Deferred. EXTREMITIES: Lower extremities with no edema. LABORATORY: Labs for 05/11/20 pending. IMAGING: Chest x-ray pending. ASSESSMENT: 1. COVID-19 19 pneumonia. 2. Klebsiella pneumoniae urinary tract infection. 3. Cholelithiasis with no evidence of cholecystitis, being followed by Dr. Jara. 4. Chronic constipation. 5. History of strokes with residual right-sided hemiparesis and aphasia. 6. Atrial fibrillation on Eliquis. 7. Hypertension. PLAN: Currently still requiring non-rebreather, but his temperature has normalized. We are going to continue on Levaquin at this time as well as anticoagulation and dexamethasone. As previously planned, he is not a surgical candidate for his cholecystitis, we will continue to monitor. Prognosis is poor, but today he seems to be unchanged overall. #[id number] [facility]
[2020-05-11] MEDS: DEXAMETHASONE INJ 10 MG/ML VIAL IV SCH (08:31)
[2020-05-11] MEDS: CETIRIZINE HCL 10 MG TAB PO SCH (08:31)
[2020-05-11] MEDS: APIXABAN 5 MG TAB PO SCH ×2 (08:31→21:03)
[2020-05-11] MEDS: LEVALBUTEROL NEBS 1.25 MG/3 ML VIAL NEB SCH ×4 (08:32→21:00)
[2020-05-11] MEDS: SODIUM CHLORIDE 0.9% (FLUSH) 10 ML SYG IV SCH ×2 (08:34→21:03)
[2020-05-11] MEDS: FLUDROCORTISONE ACETATE PO SCH (08:34)
[2020-05-11] MEDS: LACTOBACILLUS 1 TAB PO SCH ×2 (08:34→21:03)
[2020-05-11] MEDS: SILODOSIN 8 MG PO SCH (09:03)
--- NOTE | 2020-05-11 09:33 | RAD ---
EXAM DESCRIPTION: Chest,1 View CLINICAL HISTORY: Pneumonia COMPARISON: May 10, 2020 FINDINGS: Accounting for AP technique, the cardiac silhouette is at upper limits of normal size. Bilateral interstitial and patchy alveolar opacities, unchanged from yesterday. No apparent pleural effusion. The lung volumes are within normal range. There is no pneumothorax or acute fracture. IMPRESSION: No new abnormality or significant change from yesterday's exam. Differential considerations include edema or pneumonia including viral or other atypical causes. Electronically signed by: Jonathan Hernandez MD 05/11/2020 9:31 AM CDT
[2020-05-11] MEDS: MAGNESIUM HYDROXIDE 30 ML UD PO PRN (14:01)
[2020-05-11] MEDS: levoFLOXacin 500MG IV 500 MG in PREMIX BAG 1 BAG IVPB SCH (18:02)
[2020-05-11] MEDS: ACETAMINOPHEN 325 MG TAB PO PRN (19:13)
[2020-05-11] MEDS ORDERED: diphenhydrAMINE HCL 50 MG/ML VIAL IV PRN (20:52)
[2020-05-11] MEDS ORDERED: LORazepam 0.5 MG TAB ONE (20:56)
[2020-05-11] MEDS ORDERED: diphenhydrAMINE HCL 25 MG CAP ONE (20:56)
[2020-05-11] MEDS: diphenhydrAMINE HCL 25 MG CAP PO PRN (21:03)
[2020-05-11] MEDS: ALPRAZolam 0.5 MG TAB PO PRN (21:03)
[2020-05-12] MEDS: diltiaZEM HCL TAB 30 MG TAB PO SCH ×3 (00:09→16:25)
[2020-05-12] MEDS: IBUPROFEN 200 MG TAB PO PRN (00:09)
[2020-05-12] MEDS: ALPRAZolam 0.5 MG TAB PO PRN ×2 (05:29→21:09)
[2020-05-12] MEDS: LEVALBUTEROL NEBS 1.25 MG/3 ML VIAL NEB SCH ×4 (09:00→20:21)
[2020-05-12] MEDS: APIXABAN 5 MG TAB PO SCH ×2 (09:09→20:50)
[2020-05-12] MEDS: DEXAMETHASONE INJ 10 MG/ML VIAL IV SCH (09:09)
[2020-05-12] MEDS: CETIRIZINE HCL 10 MG TAB PO SCH (09:09)
[2020-05-12] MEDS: FLUDROCORTISONE ACETATE PO SCH (09:10)
[2020-05-12] MEDS: SILODOSIN 8 MG PO SCH (09:10)
[2020-05-12] MEDS: SODIUM CHLORIDE 0.9% (FLUSH) 10 ML SYG IV SCH ×2 (09:11→20:50)
[2020-05-12] MEDS: LACTOBACILLUS 1 TAB PO SCH ×2 (09:11→20:50)
[2020-05-12] MEDS: levoFLOXacin 500MG IV 500 MG in PREMIX BAG 1 BAG IVPB SCH (17:47)
[2020-05-12] MEDS: diphenhydrAMINE HCL 25 MG CAP PO PRN (21:09)
[2020-05-12] MEDS: IV SET AND CAP CHANGE INJ INJ SCH (22:12)
[2020-05-13] MEDS: diltiaZEM HCL TAB 30 MG TAB PO SCH ×3 (00:30→17:31)
[2020-05-13] MEDS: IBUPROFEN 200 MG TAB PO PRN ×2 (02:30→21:20)
[2020-05-13] MEDS: ALPRAZolam 0.5 MG TAB PO PRN ×3 (03:27→18:28)
--- NOTE | 2020-05-13 07:10 | RAD ---
EXAMINATION: Chest x-ray one view. INDICATION: Covid pneumonia COMPARISON: May 11, 2020 TECHNIQUE: Frontal radiograph chest. FINDINGS: Overlying EKG leads and wires obscure portions of the lungs. The cardiac silhouette is enlarged and stable Diffuse bilateral patchy airspace opacities are similar to prior. There is no pneumothorax. IMPRESSION: Diffuse bilateral patchy airspace opacities are similar to prior. No significant interval change in aeration. Findings are likely related to the provided history of Covid pneumonia Electronically signed by: Jensen Coles MD 05/13/2020 7:08 AM CDT
--- NOTE | 2020-05-13 07:40 | PN ---
SUPERVISING PHYSICIAN: JOSE MIGUEL CAT MD DATE: 05/12/20 SUBJECTIVE: The patient is lying in bed and is somewhat more alert today. He continues to require some oxygen via face mask. OBJECTIVE: VITAL SIGNS: Temperature 98.1, T-max 24 hours is 98.1. Heart rate of 88. Blood pressure is 110/69, respiratory rate is 18. Oxygen saturation 95% on non- rebreather. RESPIRATORY: Diminished breath sounds throughout with a few scattered rhonchi. CARDIAC: Regular rate and rhythm. GASTROINTESTINAL: Abdomen is soft, nondistended, non-tender. Bowel sounds are positive. NEUROLOGIC: He is awake and alert, he is oriented to person only. He is mostly aphasic. LABORATORY: WBCs are 6.3 with a hemoglobin of 13, hematocrit of 39.5. Neutrophils 88.1%, lymphocytes 8.5%. D-dimer has gone up to 1200. Calcium is low at 7.5, C-reactive protein has improved to 3.8. All other labs and films have been reviewed via the EMR. ASSESSMENT: 1. COVID-19 19 pneumonia. 2. Klebsiella pneumoniae urinary tract infection. 3. Cholelithiasis with no evidence of cholecystitis, being followed by Dr. Jara. 4. Chronic constipation. 5. History of strokes with residual right-sided hemiparesis and aphasia. 6. Atrial fibrillation on Eliquis. 7. Hypertension. PLAN: We will continue present supportive care. At this point, he is still requiring a non-rebreather. We will continue on his present antibiotics and anticoagulation as well as steroids. He is a nonsurgical candidate. His prognosis is poor but we will continue to monitor him closely and follow as needed. I have ordered some labs and chest x-ray for tomorrow. We will continue to monitor him closely and follow as needed. [facility][id number] [facility]
[2020-05-13] MEDS: APIXABAN 5 MG TAB PO SCH ×2 (08:41→21:20)
[2020-05-13] MEDS: CETIRIZINE HCL 10 MG TAB PO SCH (08:41)
[2020-05-13] MEDS: SODIUM CHLORIDE 0.9% (FLUSH) 10 ML SYG IV SCH ×2 (08:42→21:22)
[2020-05-13] MEDS: LACTOBACILLUS 1 TAB PO SCH ×2 (08:42→21:22)
[2020-05-13] MEDS: DEXAMETHASONE INJ 10 MG/ML VIAL IV SCH (08:43)
[2020-05-13] MEDS: LEVALBUTEROL NEBS 1.25 MG/3 ML VIAL NEB SCH ×4 (09:30→21:40)
[2020-05-13] MEDS: SILODOSIN 8 MG PO SCH (09:58)
[2020-05-13] MEDS: FLUDROCORTISONE ACETATE PO SCH (09:58)
[2020-05-13] MEDS ORDERED: ALPRAZolam 0.25 MG TAB PO ONE (14:10)
[2020-05-13] MEDS ORDERED: ALPRAZolam 0.25 MG TAB ONE (14:12)
--- NOTE | 2020-05-13 17:12 | PN ---
SUPERVISING PHYSICIAN: Izaiah Ward M.D. DATE: 05/13/20 SUBJECTIVE: The patient is much more awake today. He actually was able to feed himself. He does respond to yes/no questions. He is mostly aphasic but he is much more alert today. They have alternated between nonrebreather and high flow oxygen, and his saturations have stayed up in the upper 80s to low 90s. OBJECTIVE: VITAL SIGNS: Temperature 96.9, heart rate 58, blood pressure 116/72, respiratory rate 19, O2 saturation 94% on a nonrebreather. RESPIRATORY: Diminished breath sounds throughout. He does get tachypneic with any exertion. Occasionally there is some accessory muscle use. CARDIAC: Regular rate and rhythm. GASTROINTESTINAL: Abdomen is soft, nondistended, non-tender. Bowel sounds are positive. LABORATORY: WBC is 8.5 with hemoglobin 13 and hematocrit 39.9. He has a left shift on his differential with absolute lymphocytes of 0.6. D-dimer is 284, fibrinogen is 125. Electrolytes are basically within normal limits with the exception of his calcium is low at 7.7. AST is high at 49, LDH is 338, C reactive protein is 1.9. Chest x-ray shows diffuse bilateral patchy airspace opacities similar to prior. No significant interval change in aeration. Findings are likely related to the provided history of COVID pneumonia. All other labs and films have been reviewed via the EMR. ASSESSMENT: 1. COVID-19 19 pneumonia. 2. Klebsiella pneumoniae urinary tract infection. 3. Cholelithiasis with no evidence of cholecystitis, being followed by Dr. Jara. 4. Chronic constipation. 5. History of strokes with residual right-sided hemiparesis and aphasia. 6. Atrial fibrillation on Eliquis. 7. Hypertension. PLAN: We will continue present supportive care. I have done routine lab tomorrow. He is clinically improving and he may need 1 to 2 more days. We have his lab trending downward as well as trying to get him off the nonrebreather. He may have to go back to [facility] on a nonrebreather, but he has improved since yesterday. Will continue to monitor closely and follow as needed. [facility][id number] [facility]
[2020-05-13] MEDS: levoFLOXacin 500MG IV 500 MG in PREMIX BAG 1 BAG IVPB SCH (17:34)
[2020-05-13] MEDS ORDERED: levoFLOXacin 500MG IV 100 ML IVPB ONE (17:34)
[2020-05-13] MEDS: diphenhydrAMINE HCL 25 MG CAP PO PRN (21:21)
[2020-05-14] MEDS: diltiaZEM HCL TAB 30 MG TAB PO SCH ×3 (00:52→16:32)
[2020-05-14] MEDS: LEVALBUTEROL NEBS 1.25 MG/3 ML VIAL NEB SCH ×4 (08:15→20:00)
[2020-05-14] MEDS: SILODOSIN 8 MG PO SCH (08:46)
[2020-05-14] MEDS: APIXABAN 5 MG TAB PO SCH ×2 (08:46→20:08)
[2020-05-14] MEDS: FLUDROCORTISONE ACETATE PO SCH (08:46)
[2020-05-14] MEDS: SODIUM CHLORIDE 0.9% (FLUSH) 10 ML SYG IV SCH ×2 (08:47→20:08)
[2020-05-14] MEDS: LACTOBACILLUS 1 TAB PO SCH ×2 (08:47→20:08)
[2020-05-14] MEDS: CETIRIZINE HCL 10 MG TAB PO SCH (08:49)
[2020-05-14] MEDS: diphenhydrAMINE HCL 25 MG CAP PO PRN ×2 (16:54→22:54)
[2020-05-14] MEDS: ALPRAZolam 0.5 MG TAB PO PRN ×2 (16:54→22:54)
[2020-05-14] MEDS: levoFLOXacin 500MG IV 500 MG in PREMIX BAG 1 BAG IVPB SCH (17:57)
[2020-05-14] MEDS: IBUPROFEN 200 MG TAB PO PRN (20:06)
[2020-05-15] MEDS: diltiaZEM HCL TAB 30 MG TAB PO SCH ×3 (00:08→16:45)
[2020-05-15] MEDS: HALOPERIDOL LACTATE INJ 5 MG/ML VIAL IM PRN (03:13)
[2020-05-15] MEDS: LEVALBUTEROL NEBS 1.25 MG/3 ML VIAL NEB PRN (05:25)
[2020-05-15] MEDS: LEVALBUTEROL NEBS 1.25 MG/3 ML VIAL NEB SCH ×4 (08:00→21:30)
--- NOTE | 2020-05-15 08:05 | RAD ---
EXAM: X-RAY CHEST, 1 VIEW HISTORY: covid. COMPARISON: Chest x-ray from 05/13/2020. TECHNIQUE: AP view of the chest. FINDINGS: Lines/tubes: None. Lungs: Moderate hazy interstitial and airspace opacities in both lungs have slightly improved. Pleural space: No pneumothorax or pleural effusion. Heart: Mildly enlarged. Bones: No acute abnormality. IMPRESSION: Moderate bilateral pulmonary opacities have slightly improved. Electronically signed by: Josias Monroy MD 05/15/2020 8:04 AM CDT
--- NOTE | 2020-05-15 08:29 | PN ---
SUPERVISING PHYSICIAN: Izaiah Ward M.D. DATE: 05/14/20 SUBJECTIVE: The patient is lying in bed. He is more confused than yesterday. He has been pulling his nonrebreather off and nursing has reported that he is somewhat agitated. I spoke with his daughter, Angelina, at length today and she is deciding on placing her dad in hospice care due to his poor prognosis. OBJECTIVE: VITAL SIGNS: Temperature 98, heart rate 74, blood pressure 105/68, respiratory rate 16, O2 saturation 95% on 6 liters nasal cannula as well as 10 liters via nonrebreather. RESPIRATORY: Diminished breath sounds throughout. When his nonrebreather is off, he desats to the mid to lower 80s. He has a difficult time maintaining his oxygen saturation. CARDIAC: Regular rate and rhythm. GASTROINTESTINAL: Abdomen is soft, nondistended, non-tender. Bowel sounds are positive. NEUROLOGIC: He is awake but he is aphasic. He is somewhat agitated today. LABORATORY: WBC is 8.6 with hemoglobin 12.7 and hematocrit 39.2. He has a left shift on his differential. Electrolytes are basically within normal limits. Calcium 7.5, AST 48, C reactive protein is 1. All other labs and films have been reviewed via the EMR ASSESSMENT: 1. COVID-19 19 pneumonia. 2. Klebsiella pneumoniae urinary tract infection. 3. Cholelithiasis with no evidence of cholecystitis, being followed by Dr. Jara. 4. Chronic constipation. 5. History of strokes with residual right-sided hemiparesis and aphasia. 6. Atrial fibrillation on Eliquis. 7. Hypertension. 8. Hypocalcemia. PLAN: We will continue present supportive care. I spoke to his daughter at length about placing her father on hospice due to his poor prognosis and she has agreed to talk to her family and will talk to Dr. Vieira in the next day or so. Increased his Decadron to 4 mg daily for the next 4 days. He has been on a nonrebreather and nasal cannula and we cannot titrate him off of his oxygen. I have ordered labs, LDH and chest x-ray tomorrow. We will continue to monitor closely and follow as needed. [id number] [facility]
[2020-05-15] MEDS: DEXAMETHASONE INJ 4 MG/ML VIAL IV SCH (09:21)
[2020-05-15] MEDS: APIXABAN 5 MG TAB PO SCH ×2 (09:22→21:25)
[2020-05-15] MEDS: SODIUM CHLORIDE 0.9% (FLUSH) 10 ML SYG IV SCH ×2 (09:22→21:25)
[2020-05-15] MEDS: CETIRIZINE HCL 10 MG TAB PO SCH (09:22)
[2020-05-15] MEDS: FLUDROCORTISONE ACETATE PO SCH (09:23)
[2020-05-15] MEDS: SILODOSIN 8 MG PO SCH (09:23)
[2020-05-15] MEDS: LACTOBACILLUS 1 TAB PO SCH ×2 (09:23→21:26)
[2020-05-15] MEDS: levoFLOXacin 500MG IV 500 MG in PREMIX BAG 1 BAG IVPB SCH (17:02)
[2020-05-15] MEDS: ALPRAZolam 0.5 MG TAB PO PRN (21:26)
--- NOTE | 2020-05-15 21:41 | PN ---
SUPERVISING PHYSICIAN: Izaiah Ward M.D. DATE: 05/15/20 SUBJECTIVE: The patient is a little lethargic today, but when he wakes up he is agitated. Continues to take his nonrebreather off and certainly desaturates. His daughter is still deciding on whether to put him on hospice care. He is actually doing well otherwise, just having a hard time getting him off of high flow oxygen. OBJECTIVE: VITAL SIGNS: Temperature 98, pulse 86, blood pressure 130/72, respirations 20, satting anywhere from 95 to 92% on nonrebreather with high flow nasal cannula. His I's and O's are showing a fairly good balance with weighing 99.3 kg. GENERAL: The patient is just resting in bed. When I saw him he was wearing his nonrebreather. He seemed to be comfortable and was not agitated, but when he does wake up he gets quite agitated and tries to pull his mask off. CHEST: Breath sounds remain diminished throughout. HEART: Regular rate and rhythm. ABDOMEN: Soft, non-tender on palpation. Bowel sounds are positive. When he is awake he is aphasic, but he is quite lethargic today, but when he does wake up he is agitated. LABORATORY: CK was 357, otherwise no other new labs are available for review. Calcium was 7.5 yesterday with an albumin of 2.3 which corrects to 8.1. RADIOLOGY: Chest x-ray per radiology interpretation shows moderate bilateral pulmonary opacities that have slightly improved. ASSESSMENT: 1. COVID-19 pneumonitis. 2. Urinary tract infection secondary to Klebsiella pneumoniae, fairly resistant but sensitive to Levaquin. 3. Cholelithiasis without acute evidence of cholecystitis, followed by Dr. Jara. 4. Chronic constipation. 5. History of strokes with residual right-sided hemiparesis and aphasia. 6. Atrial fibrillation on Eliquis with a continued controlled ventricular rate. 7. Hypertension, stable. 8. Hypocalcemia, stable. PLAN: Will continue with the plan of care at this point which is continued anticoagulation with Eliquis, Decadron 4 mg daily with Levaquin for coverage of the urinary tract infection. His progress is quite poor and certainly I think the best course of action would be to put him on hospice. His family is working on that at this point trying to come to an agreement. Will continue providing oxygen as needed with nonrebreather nasal cannula to keep his O2 above 92 as able. Will follow his lab as needed but at this point they seem to be fairly stable. Will hold off on any labs in the morning unless he dramatically clinically declines overnight. Until we can transition him back to [facility] hopefully on hospice, will continue to monitor and treat as needed. [facility][id number] [facility]
[2020-05-15] MEDS: IV SET AND CAP CHANGE INJ INJ SCH (23:56)
[2020-05-16] MEDS: diltiaZEM HCL TAB 30 MG TAB PO SCH ×3 (00:19→16:49)
[2020-05-16] MEDS: diphenhydrAMINE HCL 25 MG CAP PO PRN (01:25)
[2020-05-16] MEDS: MAGNESIUM HYDROXIDE 30 ML UD PO PRN (01:30)
[2020-05-16] MEDS: LEVALBUTEROL NEBS 1.25 MG/3 ML VIAL NEB SCH ×4 (08:00→21:17)
[2020-05-16] MEDS: APIXABAN 5 MG TAB PO SCH ×2 (09:06→21:15)
[2020-05-16] MEDS: CETIRIZINE HCL 10 MG TAB PO SCH (09:06)
[2020-05-16] MEDS: LACTOBACILLUS 1 TAB PO SCH ×2 (09:06→21:15)
[2020-05-16] MEDS: SODIUM CHLORIDE 0.9% (FLUSH) 10 ML SYG IV SCH ×2 (09:06→21:15)
[2020-05-16] MEDS: SILODOSIN 8 MG PO SCH (09:09)
[2020-05-16] MEDS: FLUDROCORTISONE ACETATE PO SCH (09:09)
[2020-05-16] MEDS: DEXAMETHASONE INJ 4 MG/ML VIAL IV SCH (12:40)
[2020-05-16] MEDS: levoFLOXacin 500MG IV 500 MG in PREMIX BAG 1 BAG IVPB SCH (16:51)
--- NOTE | 2020-05-16 21:35 | PN ---
SUPERVISING PHYSICIAN: Izaiah Ward M.D. DATE: 05/16/20 SUBJECTIVE: The patient seems to be a little bit more alert today on exam. He does still get anxious and tries to pull his mask off, when he does he certainly desaturates. We are still not able to get him off of the high flow oxygen in the form of a nonrebreather or a Venti mask, but he seems to be okay at this point. His daughter is still discussing whether or not she can put him on hospice care. OBJECTIVE: VITAL SIGNS: Temperature 97.7, pulse 72, blood pressure 110/64, respirations 16, satting 90 to 97% variably on a nonrebreather at 15 liters. His I's and O's are showing a negative balance. His weight is at 97.5 kg which is down nearly 3 kg in the last 2 days. GENERAL: He is resting comfortably, much more alert today. Actually will make eye contacts, but again he is not able to hold any conversation but does seem to be more alert. CHEST: Breath sounds remain diminished throughout. HEART: Regular rate and rhythm. ABDOMEN: Soft, non-tender on palpation. Bowel sounds are positive. When he is awake he is aphasic, but he is quite lethargic today, but when he does wake up he is agitated. NEUROLOGIC: He remains aphasic, but he is awake today and will nod and make eye contact. LABORATORY: No additional laboratory studies today. RADIOLOGY: No additional radiographic studies today. ASSESSMENT: 1. COVID-19 pneumonitis. 2. Urinary tract infection secondary to Klebsiella pneumoniae, fairly resistant but sensitive to Levaquin. 3. Cholelithiasis without acute evidence of cholecystitis, followed by Dr. Jara. 4. Chronic constipation. 5. History of strokes with residual right-sided hemiparesis and aphasia. 6. Atrial fibrillation on Eliquis with a continued controlled ventricular rate. 7. Hypertension, stable. 8. Hypocalcemia, stable. PLAN: Will continue with anticoagulation with Eliquis, Decadron and Levaquin for both treatment of underlying urinary tract infection and ongoing COVID pneumonia. His progress still is quite poor and we are waiting to see if we can get him on hospice. Hopefully that will happen within the next 24 hours and we can discharge him back to [facility]. Will continue to provide oxygen and nonrebreather mask and try to taper him down as we can. He does seem to be fairly stable, although guarded on his condition. Will go ahead and check some basic labs in the morning. Until we can transition him back to [facility] hopefully on hospice, will continue to monitor and treat as needed. #[id number] [facility]
[2020-05-17] MEDS: IBUPROFEN 200 MG TAB PO PRN (00:02)
[2020-05-17] MEDS: diltiaZEM HCL TAB 30 MG TAB PO SCH ×2 (00:02→07:40)
[2020-05-17] MEDS: diphenhydrAMINE HCL 25 MG CAP PO PRN (00:02)
[2020-05-17] MEDS: LEVALBUTEROL NEBS 1.25 MG/3 ML VIAL NEB SCH ×2 (08:05→13:25)
[2020-05-17] MEDS: CETIRIZINE HCL 10 MG TAB PO SCH (08:44)
[2020-05-17] MEDS: SILODOSIN 8 MG PO SCH (08:44)
[2020-05-17] MEDS: FLUDROCORTISONE ACETATE PO SCH (08:44)
[2020-05-17] MEDS: APIXABAN 5 MG TAB PO SCH (08:44)
[2020-05-17] MEDS: DEXAMETHASONE INJ 4 MG/ML VIAL IV SCH (08:44)
[2020-05-17] MEDS: LACTOBACILLUS 1 TAB PO SCH (08:45)
[2020-05-17] MEDS: SODIUM CHLORIDE 0.9% (FLUSH) 10 ML SYG IV SCH (08:45)
[2020-05-17] MEDS: MAGNESIUM HYDROXIDE 30 ML UD PO PRN (11:49)
[2020-05-17 14:23] VITALS: BP 135/74; TEMP 98.3; O2SAT 91
--- NOTE | 2020-05-26 17:48 | DS ---
SUPERVISING PHYSICIAN: Yazan Higgins M.D. ADMISSION DIAGNOSIS: 1. Sepsis related to right-sided pneumonia as well as a urinary tract infection. Admitting temperature was 102.5 with heart rate of 105. 2. Right-sided pneumonia most likely healthcare acquired as he lives in a long-term care center. 3. Urinary tract infection. 4. High risk for Covid-19. 5. History of strokes with residual right-sided hemiparesis. 6. Atrial fibrillation on Eliquis. 7. Hypertension. DISCHARGE DIAGNOSIS: 1. COVID-19 pneumonitis. 2. Urinary tract infection secondary to Klebsiella pneumoniae, fairly resistant but sensitive to Levaquin. 3. Cholelithiasis without acute evidence of cholecystitis, followed by Dr. Jara. 4. Chronic constipation. 5. History of strokes with residual right-sided hemiparesis and aphasia. 6. Atrial fibrillation on Eliquis with a continued controlled ventricular rate. 7. Hypertension, stable. 8. Hypocalcemia, stable. REASON FOR HOSPITALIZATION: This is an 80 year-old male patient who is a resident of [facility]. He reportedly had a fever at the shelter with some nausea and vomiting, also had a cough. He has also been exposed to a Covid-19 patient at the shelter and his mental status has declined over the last day or so. He is non-verbal and has been for quite some time due to a previous stroke. He does have right-sided bruises. He was sent to the Emergency Room where his initial vital signs showed a temperature of 102.5 with heart rate of 105. Blood pressure was 147/91, respiratory rate 20, oxygen saturation 97% on 2 liters nasal cannula. His lab studies showed a WBC of 6,800 with hemoglobin of 13.2, hematocrit 38.8. He did have a left shift on his differential. D-dimer was less than 131. Sodium 137, potassium 3.4, chloride 100, carbon dioxide 27, BUN 18, creatinine 0.9, lactic acid 1.6, calcium 8.1, total bilirubin 1.1. C-reactive protein 6.9 with alkaline phosphatase of 0.27. He had a urinary tract infection on his urinalysis with 40 of urine ketones with trace of intact urine blood, positive urine nitrites, 4 of urobilinogen, trace of urine leukocyte esterase, 10 to 20 urine WBCs and 4+ urine bacteria. His blood cultures were drawn as well as a urine culture was ordered. Influenza type A and B per PCR were both negative. He was tested for Covid-19. Chest x- ray showed small patchy airspace infiltrates in the right mid and lower lung concerning for infection, viral infection was not excluded. Initially, he was given Levaquin in the Emergency Room as well as some fluids and azithromycin was added. He also received some Decadron and some Zofran and I was called for hospital admission. LABORATORY: White count on discharge was 8,600, hemoglobin 12.7, hematocrit 39.2, platelet count 205,000. Differential showed a left shift. Coagulation studies showed a D-dimer that went up to 1200 but has gone down to 284 prior to discharge. Blood gas analysis on admission on 05/08/20 showed a pH of 7.53 with a pO2 of 40, bicarb of 26, pCO2 of 32, satting 80% and that was on room air. Chemistries on discharge showed electrolytes had stabilized and final electrolytes on the were showing to be normal. Creatinine was normalized to 0.68. C reactive protein had gone up as far as to maximum of 17.4, prior to discharge was down to 1.0. LDHs were showing to be stable at 357. Troponin was within normal limits. Liver functions showed just a slightly elevated AST at 48 and was stable, otherwise all other liver functions were within normal limits. Calcium was showing to be 7.5, corrected for an albumin of 2.3 to 8.3. Urinalysis did show positive nitrites with 4.0 urobilinogen, trace of leukocyte esterase, 40 ketones. Microscopic revealed 10 to 20 WBCs with 1 epithelial, 4+ bacteria. He had several trough levels for Vancomycin, final trough on the was 14. MICROBIOLOGY: Blood cultures are negative after 4 days. Final urine culture report showed a Klebsiella pneumoniae that was fairly resistant, but sensitive to Levaquin. Please see this report for details. He did have a positive SARS-CoV-2 test. RADIOLOGY: He had multiple chest x-rays, including initial chest x-ray that showed small patchy airspace infiltrates in the right mid lung concerning for infection. Multiple x-rays followed-up. Final x-ray on the per radiology interpretation was showing moderate bilateral pulmonary opacities slightly improved. Please see those reports for details. He also had an abdominal/pelvis CT and per radiology interpretation showed distended gallbladder without any biliary duct dilation. Findings may relate to cholecystitis with dedicated ultrasound which was completed. Also on that report you will see that it showed moderate stool indicating constipation. There was note of a small bilateral pleural effusion, adjacent atelectasis, consolidation such as pneumonia versus aspiration. There was a large moderate fat-containing inguinal hernia. Gallbladder ultrasound followup from the CT per radiology interpretation showed descending gallbladder with cholecystitis and gallbladder sludge, but no ultrasound evidence of acute cholecystitis or biliary tract obstruction. CONSULTATION: Surgical consultation with Dr. Jara. Please see all of his notes for details. HOSPITAL COURSE: Mr. Kamara was admitted for COVID pneumonia and urinary tract infection. He was treated aggressively with antibiotics. Given his advanced age he did progress slowly. His labs were trending on the inflammatory markers to indicate that he was showing clinical improvement with treatment which included antibiotics with Levaquin, azithromycin, Rocephin, Vancomycin and Meropenem. He was also on Decadron. He was anticoagulated with Eliquis as he did have atrial fibrillation chronically. Again, he was showing good improvement clinically with final vital signs on discharge date showing a temperature of 98.3, pulse 89, blood pressure 135/74, saturations were 91 to 93% on nonrebreather requiring ongoing oxygen therapy with a nonrebreather. Clinically he had showed improvement and had stabilized. It was felt that he could continue with treatment at [facility] with respiratory care, therefore he was discharged to continue with outpatient management. PLAN: Mr. Kamara was discharged on 05/17/20 to return back to [facility]. He is to resume all previous orders and to followup with Dr. Vieira in 1 to 2 weeks. He was to resume his usual diet. Activity as tolerated. Medications on discharge included all of his home medications as he finished a full 14 day course of antibiotics as well as a 10 day course of Decadron, therefore those were not continued at discharge. He was already on Eliquis for atrial fibrillation. This was continued at discharge as well. Condition on discharge was stable and improving. DISPOSITION: Transferred back to [facility]. #[id number] MTDD
== END 2020-05-17 14:10 | disposition home or self-care (01) | DRG 871 ==
LOC: ER 17:25 → OBSVTOIN 20:34 → MS 20:34
PROVIDERS: ADMIT Nurse Practitioner Acute Care; ATTEND Nurse Practitioner Family
DX: A41.89 Other specified sepsis (principal); U07.1 COVID-19; J12.89 Other viral pneumonia; J18.1 Lobar pneumonia, unspecified organism; N39.0 Urinary tract infection, site not specified; I69.351 Hemiplegia and hemiparesis following cerebral infarction affecting right dominant side; I48.11 Longstanding persistent atrial fibrillation; Z16.24 Resistance to multiple antibiotics; Y95 Nosocomial condition; B96.1 Klebsiella pneumoniae [K. pneumoniae] as the cause of diseases classified elsewhere; R09.02 Hypoxemia; I10 Essential (primary) hypertension; E83.51 Hypocalcemia; I69.320 Aphasia following cerebral infarction; K59.09 Other constipation; K80.20 Calculus of gallbladder without cholecystitis without obstruction; F03.90 Unspecified dementia, unspecified severity, without behavioral disturbance, psychotic disturbance, mood disturbance, and anxiety; R45.1 Restlessness and agitation; E78.5 Hyperlipidemia, unspecified; K40.20 Bilateral inguinal hernia, without obstruction or gangrene, not specified as recurrent; Z79.01 Long term (current) use of anticoagulants; Z79.899 Other long term (current) drug therapy; Z88.0 Allergy status to penicillin; Z87.891 Personal history of nicotine dependence; Z86.14 Personal history of Methicillin resistant Staphylococcus aureus infection; Z66 Do not resuscitate